=== PATIENT | female | born 1950 | race Caucasian/White ===

== ENCOUNTER 2017-10-04 12:18 | Inpatient (IN) | payer OTHER, BC ==
[~2017-10-04] VITALS: Ht 157.5 cm; Wt 56.2 kg
[2017-10-04] MEDS ORDERED: SODIUM CHLORIDE 0.9% 1000ML 1,000 ML IV STA (12:54)
--- NOTE | 2017-10-04 12:57 | EMERGENCY ROOM VISIT NOTE ---
History Report prepared by Hannah: Leoncio Fraga Under the Supervision of: Dr. Kelton Rios M.D. First contact with patient: 12:26 Chief Complaint: CONFUSION Stated Complaint: CONFUSION,SEIZURE DISORDER Nursing Triage Summary: pt to the ED with c/o since wednesday with epigastric pain to shoulder and was seen at [facility] and told to come here with concerns for gallbladder + nausea History of Present Illness This HPI is limited secondary to the altered mental status of the patient. The patient is a 67 year old female who presents to the Emergency Room for worsening confusion. The patient was not able to provide any pertinent history. The daughter notes that she has been very confused since waking up this morning. The daughter added that she has a history of a seizure disorder and will sometimes be slightly confused secondary to this. However, this is the worst her confusion has ever been. The daughter denies any recent fevers. Source of History: family History Limited By: AMS Position: other (Neuro) Quality: other (Confusion) Timing: worsening Associated Symptoms: No fevers Review of Systems See HPI for pertinent positives & negatives. A total of 10 systems reviewed and were otherwise negative. Past Medical & Surgical Medical Problems: (1) Confusion Hx of Seizure Disorder. Family History Omitted secondary to age. Social History Drug Use: none Housing Status: lives with family Occupation Status: retired Current/Historical Medications Scheduled Aspirin (Aspirin Ec), 81 MG PO DAILY Digoxin (Digitek), 0.5 TAB PO DAILY Diltiazem Hcl Extended Release (Diltiazem Hcl), 300 MG PO DAILY Ferrous Sulfate (Ferrous Sulfate), 325 MG PO BID Furosemide (Lasix), 20 MG PO DAILY Gabapentin (Neurontin), 600 MG PO DAILY Insulin Glargine (Toujeo Solostar), 14 UNITS SC DAILY Lacosamide (Vimpat), 200 MG PO BID Lamotrigine (Lamictal), 100 MG PO QAM Lamotrigine (Lamictal), 200 MG PO QPM Lisinopril (Zestril), 20 MG PO BID Magnesium Oxide (Mag-Ox), 400 MG PO BID Metformin HCl (Metformin HCl ER), 1,000 MG PO BID Simvastatin (Zocor), 40 MG PO DAILY Warfarin Sod (Jantoven), 5 MG PO MWF Warfarin Sod (Jantoven), 10 MG PO 4XWK Allergies Coded Allergies: Latex (Unverified Allergy, Intermediate, HIVES, 10/04/17) Valproic Acid (Unverified Allergy, Intermediate, HIVES, 10/04/17) Physical Exam Vital Signs Date Time Temp Pulse Resp B/P (MAP) Pulse Ox O2 Delivery O2 Flow Rate FiO2 10/04/17 15:21 62 18 154/83 97 Room Air 10/04/17 13:57 70 18 174/79 98 Room Air 74 191/78 84 174/71 10/04/17 13:25 67 10/04/17 13:25 96 Room Air 10/04/17 13:25 96 Room Air 10/04/17 12:23 36.7 92 20 175/98 98 Room Air Physical Exam GENERAL: Patient is a healthy-appearing well-nourished female HEAD: Normocephalic atraumatic EYES: Ocular movements intact pupils equal and react to light OROPHARYNX mucous membranes are moist no exudates present no erythema or edema present NECK: Supple no nuchal rigidity CHEST: Good equal expansion LUNGS: Clear and equal to auscultation CARDIAC: Normal S1 and S2. Mechanical Valve sounds to auscultation. ABDOMEN: Soft nontender no guarding BACK: No CVA tenderness EXTREMITIES: No pain upon palpation normal muscle strength in all groups no clubbing cyanosis or edema NEURO: Patient is following commands and answering questions appropriately. Alert and oriented x3 Cranial Nerves 2-12 grossly intact Medical Decision & Procedures ER Provider Diagnostic Interpretation: Radiology results as stated below per my review and radiologist interpretation: SINGLE VIEW CHEST CLINICAL HISTORY: Change in mental status. FINDINGS: An AP, portable, upright chest radiograph is obtained. No prior studies are available for comparison at the time of dictation. The examination is degraded by portable technique and patient rotation. A 2-lead cardiac AICD is in place and partially obscures the left mid chest. The patient is status post midline sternotomy. The heart is enlarged and there is atherosclerotic calcification of the thoracic aorta. The pulmonary vasculature is noncongested. There is nonspecific interstitial thickening. No airspace consolidation or large pleural effusion is identified. No pneumothorax is seen. The skeletal structures are osteopenic. The bony thorax is grossly intact. IMPRESSION: 1. Cardiomegaly and AICD. There is no radiographic evidence of congestive failure. 2. No focal airspace consolidation or large pleural effusion is identified. Electronically signed by: Azar Uriostegui M.D. 10/04/2017 2:00 PM Dictated Date/Time: 10/04/2017 1:59 PM HEAD WITHOUT CONTRAST (CT) CLINICAL HISTORY: 67 years-old Female presenting with Pt c/o AMS, confusion. TECHNIQUE: Multidetector CT imaging of the head was performed without the use of intravenous contrast. IV contrast: None. A dose lowering technique was used consistent with the principles of ALARA (as low as reasonably achievable). COMPARISON: None. CT DOSE (mGy.cm): The estimated cumulative dose is 1380.10 mGycm. FINDINGS: Wellness Instructor topogram: Unremarkable. Proportional ventricular and sulcal prominence, likely age-related parenchymal volume loss. 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 Focal gliosis and encephalomalacia in the anterior right temporal lobe prior infarct. No mass effect or midline shift. No hemorrhage or acute territorial infarct. No extra-axial fluid collection. Paranasal sinuses and mastoid air cells clear. Calvarium intact. IMPRESSION: 1. 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 No acute intracranial pathology. Electronically signed by: Rakesh Curry M.D. 10/04/2017 1:48 PM Dictated Date/Time: 10/04/2017 1:45 PM Laboratory Results 10/04/17 13:00 Red Blood Count 4.46, Mean Corpuscular Volume 91.7, Mean Corpuscular Hemoglobin 31.8, Mean Corpuscular Hemoglobin Concent 34.7, Mean Platelet Volume 9.8, Neutrophils (%) (Auto) 77.4, Lymphocytes (%) (Auto) 12.8, Monocytes (%) (Auto) 5.7, Eosinophils (%) (Auto) 3.5, Basophils (%) (Auto) 0.3, Neutrophils # (Auto) 7.89, Lymphocytes # (Auto) 1.31, Monocytes # (Auto) 0.58, Eosinophils # (Auto) 0.36, Basophils # (Auto) 0.03 10/04/17 13:00 Test 10/04/17 13:00 10/04/17 13:15 10/04/17 13:50 10/04/17 14:08 White Blood Count 10.20 K/uL (4.8-10.8) Red Blood Count 4.46 M/uL (4.2-5.4) Hemoglobin 14.2 g/dL (12.0-16.0) Hematocrit 40.9 % (37-47) Mean Corpuscular Volume 91.7 fL (80-100) Mean Corpuscular Hemoglobin 31.8 pg (25-34) Mean Corpuscular Hemoglobin Concent 34.7 g/dl (32-36) Platelet Count 230 K/uL (130-400) Mean Platelet Volume 9.8 fL (7.4-10.4) Neutrophils (%) (Auto) 77.4 % Lymphocytes (%) (Auto) 12.8 % Monocytes (%) (Auto) 5.7 % Eosinophils (%) (Auto) 3.5 % Basophils (%) (Auto) 0.3 % Neutrophils # (Auto) 7.89 K/uL (1.4-6.5) Lymphocytes # (Auto) 1.31 K/uL (1.2-3.4) Monocytes # (Auto) 0.58 K/uL (0.11-0.59) Eosinophils # (Auto) 0.36 K/uL (0-0.5) Basophils # (Auto) 0.03 K/uL (0-0.2) RDW Standard Deviation 46.3 fL (36.4-46.3) RDW Coefficient of Variation 13.8 % (11.5-14.5) Immature Granulocyte % (Auto) 0.3 % Immature Granulocyte # (Auto) 0.03 K/uL (0.00-0.02) Prothrombin Time 22.4 SECONDS (9.0-12.0) Prothromb Time International Ratio 2.2 (0.9-1.1) Anion Gap 9.0 mmol/L (3-11) Est Creatinine Clear Calc Drug Dose 33.0 ml/min Estimated GFR () 49.3 Estimated GFR (Non- 42.5 BUN/Creatinine Ratio 22.0 (10-20) Calcium Level 10.9 mg/dl (8.5-10.1) Total Bilirubin 0.3 mg/dl (0.2-1) Direct Bilirubin < 0.1 mg/dl (0-0.2) Aspartate Amino Transf (AST/SGOT) 13 U/L (15-37) Alanine Aminotransferase (ALT/SGPT) 25 U/L (12-78) Alkaline Phosphatase 154 U/L (45-117) Total Creatine Kinase 34 U/L (26-192) Creatine Kinase MB 0.9 ng/ml (0.5-3.6) Creatine Kinase MB Ratio 2.6 (0-3.0) Troponin I < 0.015 ng/ml (0-0.045) Total Protein 7.9 gm/dl (6.4-8.2) Albumin 3.9 gm/dl (3.4-5.0) Thyroid Stimulating Hormone (TSH) 0.974 uIu/ml (0.300-4.500) Digoxin Level 0.8 ng/ml (0.8-2.0) Bedside Glucose 244 mg/dl (70-90) Influenza Type A Antigen Neg for Influ A (NEG) Influenza Type B Antigen Neg for Influ B (NEG) Urine Color YELLOW Urine Appearance CLEAR (CLEAR) Urine pH 5.5 (4.5-7.5) Urine Specific [place] 1.020 (1.000-1.030) Urine Protein 2+ (NEG) Urine Glucose (UA) TRACE (NEG) Urine Ketones NEG (NEG) Urine Occult Blood 1+ (NEG) Urine Nitrite NEG (NEG) Urine Bilirubin NEG (NEG) Urine Urobilinogen NEG (NEG) Urine Leukocyte Esterase NEG (NEG) Urine RBC 0-4 /hpf (0-4) Urine WBC 1-5 /hpf (0-5) Urine Epithelial Cells 0-5 /lpf (0-5) Urine Bacteria NEG (NEG) Urine Hyaline Casts 10-30 /lpf (0-5) Urine Granular Casts 0-3 /lpf (0) Labs reviewed by ED physician. Medications Administered Medications (Trade) Dose Ordered Sig/Kimberlee Route Start Time Stop Time Status Last Admin Dose Admin Sodium Chloride 1,000 ml @ 999 mls/hr Q1H1M STAT IV 10/04/17 12:54 10/04/17 13:54 DC 10/04/17 12:54 999 MLS/HR Insulin Human Regular (novoLIN-R U-100 PER UNIT) 10 units NOW STAT SC 10/04/17 14:21 10/04/17 14:22 DC 10/04/17 14:30 10 UNITS Ceftriaxone Sodium (Rocephin Inj) 1 gm NOW STAT IV 10/04/17 15:25 10/04/17 15:26 DC 10/04/17 15:38 1 GM ECG Per My Interpretation Indication: altered mental status Rate (beats per minute): 70 Findings: PVC, T-wave inversion (Inferior, lateral) ED Course 1247: Past medical records reviewed. The patient was evaluated in room C11. A complete history and physical examination was performed. 1254: Ordered Sodium Chloride 100 mL @ 999 mL/hr IV. 1421: Ordered Regular Human Insulin 10 units SC. 1524: I discussed the case with Dr. Thang MCKEON Hospitalist. He will evaluate the patient for further treatment. 1524: Ordered Rocephin 1 gm IV. Medical Decision Differential diagnosis: Etiologies such as metabolic, infection, hypoglycemia, electrolyte abnormalities , cardiac sources, intracerebral event, toxicologic, neurologic, as well as others were entertained. This is a 67-year-old female who presents emergency department acutely altered. Patient has not been able to answer any questions correctly and per the family this is very much unlike her. Her sugar is also elevated. An IV was established, the patient given normal saline bolus, 10 units of insulin subcutaneous. She does have some blood in her urine and I will prophylactically treat her for urinary tract infection. CAT scan of the head shows old chronic changes and her chest x-ray does not show any evidence of pneumonia. Based on these findings I did discuss the case with the hospitalist service who agreed to admit the patient. Patient family were in agreement with the treatment plan. Medication Reconcilliation Current Medication List: was personally reviewed by me Blood Pressure Screening Patient's blood pressure: Elevated blood pressure Referred to Hospitalist Consults Time Called: 152 Consulting Physician: Dr. Thang MCKEON Hospitalist Returned Call: 152 I discussed the case with Dr. Thang MCKEON Hospitalist. He will evaluate the patient for further treatment. Impression Primary Impression: Altered mental status Scribe Attestation The scribe's documentation has been prepared under my direction and personally reviewed by me in its entirety. I confirm that the note above accurately reflects all work, treatment, procedures, and medical decision making performed by me. Departure Information Dispostion Being Evaluated By Hospitalist Referrals Elver Rolon D.O. (PCP) Patient Instructions My [facility] Problem Qualifiers Primary Impression: Altered mental status Altered mental status type: unspecified Qualified Codes: R41.82 - Altered mental status, unspecified
[2017-10-04] MEDS ORDERED: WARF5TAB7 PO ×2 (13:31)
[2017-10-04] MEDS ORDERED: LACO200T PO (13:31)
[2017-10-04] MEDS ORDERED: LAMO200T PO (13:31)
[2017-10-04] MEDS ORDERED: INSU1.2I SC (13:31)
[2017-10-04] MEDS ORDERED: MAGN400T6 PO (13:31)
[2017-10-04] MEDS ORDERED: DIGO1TAB90 PO (13:31)
[2017-10-04] MEDS ORDERED: SIMV40TA2 PO (13:31)
[2017-10-04] MEDS ORDERED: GABA-113 PO (13:31)
[2017-10-04] MEDS ORDERED: FRRS300 PO (13:31)
[2017-10-04] MEDS ORDERED: LAMO100T16 PO (13:31)
[2017-10-04] MEDS ORDERED: LISI-725 PO (13:31)
[2017-10-04] MEDS ORDERED: FURO-85 PO (13:31)
[2017-10-04] MEDS ORDERED: DILT300C35 PO (13:31)
[2017-10-04] MEDS ORDERED: ASPI81TA28 PO (13:31)
[2017-10-04] MEDS ORDERED: METF-841 PO (13:31)
[2017-10-04 13:35] LABS: BASO % 0.3 %; BASO ABS # 0.03 K/uL (0-0.2); EOS % 3.5 %; EOS ABS # 0.36 K/uL (0-0.5); HEMATOCRIT 40.9 % (37-47); HEMOGLOBIN 14.2 g/dL (12.0-16.0); IG# 0.03 K/uL (0.00-0.02); LYMPH % 12.8 %; LYMPH ABS # 1.31 K/uL (1.2-3.4); MEAN CELL VOLUME 91.7 fL (80-100); MEAN CORPUSCULAR HEMOGLOBIN 31.8 pg (25-34); MEAN CORPUSCULAR HGB CONC 34.7 g/dl (32-36); MEAN PLATELET VOLUME 9.8 fL (7.4-10.4); MONO % 5.7 %; MONO ABS # 0.58 K/uL (0.11-0.59); NEUT % 77.4 %; NEUT ABS # 7.89 K/uL (1.4-6.5); PLATELET COUNT 230 K/uL (130-400); RED CELL DISTRIBUTION WIDTH CV 13.8 % (11.5-14.5); RED CELL DISTRIBUTION WIDTH SD 46.3 fL (36.4-46.3)
[2017-10-04 13:37] LABS: INR 2.2 (0.9-1.1)
--- NOTE | 2017-10-04 13:49 | DIAGNOSTIC IMAGING REPORT ---
HEAD WITHOUT CONTRAST (CT) CLINICAL HISTORY: 67 years-old Female presenting with Pt c/o AMS, confusion. TECHNIQUE: Multidetector CT imaging of the head was performed without the use of intravenous contrast. IV contrast: None. A dose lowering technique was used consistent with the principles of ALARA (as low as reasonably achievable). COMPARISON: None. CT DOSE (mGy.cm): The estimated cumulative dose is 1380.10 mGycm. FINDINGS: Product Promoter Sales Person topogram: Unremarkable. Proportional ventricular and sulcal prominence, likely age-related parenchymal volume loss. 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 Focal gliosis and encephalomalacia in the anterior right temporal lobe prior infarct. No mass effect or midline shift. No hemorrhage or acute territorial infarct. No extra-axial fluid collection. Paranasal sinuses and mastoid air cells clear. Calvarium intact. IMPRESSION: 1. 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 No acute intracranial pathology. Electronically signed by: Rakesh Curry M.D. 10/04/2017 1:48 PM Dictated Date/Time: 10/04/2017 1:45 PM
[2017-10-04 14:02] LABS: ALBUMIN 3.9 gm/dl (3.4-5.0); ALKALINE PHOSPHATASE 154 U/L (45-117); ALT/SGPT 25 U/L (12-78); AST/SGOT 13 U/L (15-37); BLOOD UREA NITROGEN 28 mg/dl (7-18); CALCIUM 10.9 mg/dl (8.5-10.1); CARBON DIOXIDE 26 mmol/L (21-32); CKMB 0.9 ng/ml (0.5-3.6); CREATININE 1.29 mg/dl (0.60-1.20); GLUCOSE 253 mg/dl (70-99); POTASSIUM 4.2 mmol/L (3.5-5.1); SODIUM 136 mmol/L (136-145); TOTAL PROTEIN 7.9 gm/dl (6.4-8.2)
--- NOTE | 2017-10-04 14:02 | DIAGNOSTIC IMAGING REPORT ---
SINGLE VIEW CHEST CLINICAL HISTORY: Change in mental status. FINDINGS: An AP, portable, upright chest radiograph is obtained. No prior studies are available for comparison at the time of dictation. The examination is degraded by portable technique and patient rotation. A 2-lead cardiac AICD is in place and partially obscures the left mid chest. The patient is status post midline sternotomy. The heart is enlarged and there is atherosclerotic calcification of the thoracic aorta. The pulmonary vasculature is noncongested. There is nonspecific interstitial thickening. No airspace consolidation or large pleural effusion is identified. No pneumothorax is seen. The skeletal structures are osteopenic. The bony thorax is grossly intact. IMPRESSION: 1. Cardiomegaly and AICD. There is no radiographic evidence of congestive failure. 2. No focal airspace consolidation or large pleural effusion is identified. Electronically signed by: Azar Uriostegui M.D. 10/04/2017 2:00 PM Dictated Date/Time: 10/04/2017 1:59 PM
[2017-10-04] MEDS ORDERED: NovoLIN-R INSULIN PER UNIT CHARGE SC STA (14:21)
[2017-10-04 14:46] LABS: INFLUENZA B ANTIGEN Neg for Influ B (NEG)
[2017-10-04] MEDS ORDERED: CEFTRIAXONE SOD INJ 1 GM ADDVIAL IV STA (15:25)
[2017-10-04] MEDS ORDERED: MoRPHine SULFATE 2 MG/ML CARP IV PRN (16:00)
[2017-10-04] MEDS ORDERED: ZOLPIDEM TARTRATE 5 MG TAB PO PRN (16:00)
[2017-10-04] MEDS ORDERED: ACETAMINOPHEN 325 MG TAB PO PRN (16:00)
[2017-10-04] MEDS ORDERED: MAGNESIUM HYDROXIDE SUSP 30 ML UDC PO PRN (16:00)
[2017-10-04] MEDS ORDERED: NITROGLYCERIN 0.4 MG SL PER TAB CHARGE SL PRN (16:00)
[2017-10-04] MEDS ORDERED: POLYETHYLENE (MIRALAX) 17 GM PACK PO PRN (16:00)
[2017-10-04] MEDS ORDERED: ALUMINUM/MAGNESIUM/SIMETH (MAALOX MAX) 30 ML UDC PO PRN (16:00)
[2017-10-04] MEDS ORDERED: ONDANSETRON INJ 2 MG/ML 2 ML VIAL IV PRN (16:00)
--- NOTE | 2017-10-04 16:27 | History and Physical ---
History & Physical Date & Time of Service: Oct 04, 2017 at 16:09 Chief Complaint: Confusion,Seizure Disorder Primary Care Physician: Elver Rolon D.O. History of Present Illness Source: patient, family, clinic records, hospital records Patient is a pleasant 67 y/o female, with PMHx of CVA, seizure disorder, a.fib, HTN, T2DM, CKD stage III, and HLD who presented to the ED because of confusion x1 day. History came largely from daughter as patient is oriented x0. According to the daughter, last evening the patient went to take her medications but began crying because she didn't know what to do with them. This AM they called their PCP and neurologist. Neurologist dismissed patient from their practice today because they want patient to have a procedure but patient does not want to do so and neurology has "nothing else to offer." PCP recommended patient come to ED. Normally, patient is alert/oriented x3. She lives alone. Patient denies any fever, chills, sweats, lightheadedness, dizziness, vision changes, CP , palpitations, edema, SOB, wheezing, cough, abdominal pain, nausea, vomiting, diarrhea, urinary symptoms, melena, numbness/tingling, weakness, muscle/joint pain, anxiety/depression, active bleeding, or new skin discoloration/changes- unsure of ROS reliability due to confusion. Past Medical/Surgical History CVA seizure disorder a.fib HTN T2DM HLD CKD stage III mitral valve repair s/p defibrillator/pacemaker placed in 2011- battery replaced in 2016 Family History denied any significant family history Social History Smoking Status: Never Smoker Alcohol Use: none Drug Use: none Marital Status: Housing status: lives alone Occupational Status: retired Allergies Coded Allergies: Latex (Unverified Allergy, Intermediate, HIVES, 10/04/17) Valproic Acid (Unverified Allergy, Intermediate, HIVES, 10/04/17) Home Medications Scheduled Aspirin (Aspirin Ec), 81 MG PO DAILY Digoxin (Digitek), 0.5 TAB PO DAILY Diltiazem Hcl Extended Release (Diltiazem Hcl), 300 MG PO DAILY Ferrous Sulfate (Ferrous Sulfate), 325 MG PO BID Furosemide (Lasix), 20 MG PO DAILY Gabapentin (Neurontin), 600 MG PO DAILY Insulin Glargine (Toujeo Solostar), 14 UNITS SC DAILY Lacosamide (Vimpat), 200 MG PO BID Lamotrigine (Lamictal), 100 MG PO QAM Lamotrigine (Lamictal), 200 MG PO QPM Lisinopril (Zestril), 20 MG PO BID Magnesium Oxide (Mag-Ox), 400 MG PO BID Metformin HCl (Metformin HCl ER), 1,000 MG PO BID Simvastatin (Zocor), 40 MG PO DAILY Warfarin Sod (Jantoven), 5 MG PO MWF Warfarin Sod (Jantoven), 10 MG PO [id number] Physical Exam Vital Signs Date Time Temp Pulse Resp B/P (MAP) Pulse Ox O2 Delivery O2 Flow Rate FiO2 10/04/17 15:21 62 18 154/83 97 Room Air 10/04/17 13:57 70 18 174/79 98 Room Air 74 191/78 84 174/71 10/04/17 13:25 67 10/04/17 13:25 96 Room Air 10/04/17 13:25 96 Room Air 10/04/17 12:23 36.7 92 20 175/98 98 Room Air General Appearance: no apparent distress Head: normocephalic, atraumatic Eyes: normal inspection, PERRL ENT: hearing grossly normal Neck: supple Respiratory/Chest: lungs clear, normal breath sounds, no respiratory distress, no accessory muscle use Cardiovascular: regular rate, rhythm Abdomen/GI: normal bowel sounds, non tender, soft Back: normal inspection Extremities/Musculoskelatal: no calf tenderness, no pedal edema Neurologic/Psych: no motor/sensory deficits, alert, normal mood/affect, oriented x 3 Skin: normal color, warm/dry, no rash Diagnostics Laboratory Results Results Past 24 Hours Test 10/04/17 13:00 10/04/17 13:15 10/04/17 13:50 10/04/17 14:08 Range/Units White Blood Count 10.20 4.8-10.8 K/uL Red Blood Count 4.46 4.2-5.4 M/uL Hemoglobin 14.2 12.0-16.0 g/dL Hematocrit 40.9 37-47 % Mean Corpuscular Volume 91.7 80-100 fL Mean Corpuscular Hemoglobin 31.8 25-34 pg Mean Corpuscular Hemoglobin Concent 34.7 32-36 g/dl Platelet Count 230 130-400 K/uL Mean Platelet Volume 9.8 7.4-10.4 fL Neutrophils (%) (Auto) 77.4 % Lymphocytes (%) (Auto) 12.8 % Monocytes (%) (Auto) 5.7 % Eosinophils (%) (Auto) 3.5 % Basophils (%) (Auto) 0.3 % Neutrophils # (Auto) 7.89 1.4-6.5 K/uL Lymphocytes # (Auto) 1.31 1.2-3.4 K/uL Monocytes # (Auto) 0.58 0.11-0.59 K/uL Eosinophils # (Auto) 0.36 0-0.5 K/uL Basophils # (Auto) 0.03 0-0.2 K/uL RDW Standard Deviation 46.3 36.4-46.3 fL RDW Coefficient of Variation 13.8 11.5-14.5 % Immature Granulocyte % (Auto) 0.3 % Immature Granulocyte # (Auto) 0.03 0.00-0.02 K/uL Prothrombin Time 22.4 9.0-12.0 SECONDS Prothromb Time International Ratio 2.2 0.9-1.1 Sodium Level 136 136-145 mmol/L Potassium Level 4.2 3.5-5.1 mmol/L Chloride Level 101 98-107 mmol/L Carbon Dioxide Level 26 21-32 mmol/L Anion Gap 9.0 3-11 mmol/L Blood Urea Nitrogen 28 7-18 mg/dl Creatinine 1.29 0.60-1.20 mg/dl Est Creatinine Clear Calc Drug Dose 33.0 ml/min Estimated GFR () 49.3 Estimated GFR (Non- 42.5 BUN/Creatinine Ratio 22.0 10-20 Random Glucose 253 70-99 mg/dl Calcium Level 10.9 8.5-10.1 mg/dl Total Bilirubin 0.3 0.2-1 mg/dl Direct Bilirubin < 0.1 0-0.2 mg/dl Aspartate Amino Transf (AST/SGOT) 13 15-37 U/L Alanine Aminotransferase (ALT/SGPT) 25 12-78 U/L Alkaline Phosphatase 154 45-117 U/L Total Creatine Kinase 34 26-192 U/L Creatine Kinase MB 0.9 0.5-3.6 ng/ml Creatine Kinase MB Ratio 2.6 0-3.0 Troponin I < 0.015 0-0.045 ng/ml Total Protein 7.9 6.4-8.2 gm/dl Albumin 3.9 3.4-5.0 gm/dl Thyroid Stimulating Hormone (TSH) 0.974 0.300-4.500 uIu/ml Digoxin Level 0.8 0.8-2.0 ng/ml Bedside Glucose 244 70-90 mg/dl Influenza Type A Antigen Neg for Influ A NEG Influenza Type B Antigen Neg for Influ B NEG Urine Color YELLOW Urine Appearance CLEAR CLEAR Urine pH 5.5 4.5-7.5 Urine Specific [place] 1.020 1.000-1.030 Urine Protein 2+ NEG Urine Glucose (UA) TRACE NEG Urine Ketones NEG NEG Urine Occult Blood 1+ NEG Urine Nitrite NEG NEG Urine Bilirubin NEG NEG Urine Urobilinogen NEG NEG Urine Leukocyte Esterase NEG NEG Urine RBC 0-4 0-4 /hpf Urine WBC 1-5 0-5 /hpf Urine Epithelial Cells 0-5 0-5 /lpf Urine Bacteria NEG NEG Urine Hyaline Casts 10-30 0-5 /lpf Urine Granular Casts 0-3 0 /lpf Diagnostic Radiology HEAD WITHOUT CONTRAST (CT) CLINICAL HISTORY: 67 years-old Female presenting with Pt c/o AMS, confusion. TECHNIQUE: Multidetector CT imaging of the head was performed without the use of intravenous contrast. IV contrast: None. A dose lowering technique was used consistent with the principles of ALARA (as low as reasonably achievable). COMPARISON: None. CT DOSE (mGy.cm): The estimated cumulative dose is 1380.10 mGycm. FINDINGS: Golf Technician topogram: Unremarkable. Proportional ventricular and sulcal prominence, likely age-related parenchymal volume loss. 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 Focal gliosis and encephalomalacia in the anterior right temporal lobe prior infarct. No mass effect or midline shift. No hemorrhage or acute territorial infarct. No extra-axial fluid collection. Paranasal sinuses and mastoid air cells clear. Calvarium intact. IMPRESSION: 1. 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 No acute intracranial pathology. Electronically signed by: Rakesh Curry M.D. 10/04/2017 1:48 PM Dictated Date/Time: 10/04/2017 1:45 PM The status of this report is Signed. Draft = Not yet reviewed or approved by Radiologist. Signed = Reviewed and approved by Radiologist. SINGLE VIEW CHEST CLINICAL HISTORY: Change in mental status. FINDINGS: An AP, portable, upright chest radiograph is obtained. No prior studies are available for comparison at the time of dictation. The examination is degraded by portable technique and patient rotation. A 2-lead cardiac AICD is in place and partially obscures the left mid chest. The patient is status post midline sternotomy. The heart is enlarged and there is atherosclerotic calcification of the thoracic aorta. The pulmonary vasculature is noncongested. There is nonspecific interstitial thickening. No airspace consolidation or large pleural effusion is identified. No pneumothorax is seen. The skeletal structures are osteopenic. The bony thorax is grossly intact. IMPRESSION: 1. Cardiomegaly and AICD. There is no radiographic evidence of congestive failure. 2. No focal airspace consolidation or large pleural effusion is identified. Electronically signed by: Azar Uriostegui M.D. 10/04/2017 2:00 PM Dictated Date/Time: 10/04/2017 1:59 PM The status of this report is Signed. Draft = Not yet reviewed or approved by Radiologist. Signed = Reviewed and approved by Radiologist. EKG IVETTE BUITRAGO ID:[id number] 04-OCT-2017 13:20:09 [facility] Atrial fibrillation with frequent ventricular-paced complexes Rightward axis ST & T wave abnormality, consider inferior ischemia ST & T wave abnormality, consider anterolateral ischemia Abnormal ECG No previous ECGs available Confirmed by AMISH AMOS ([id number]) on 10/04/2017 4:18:04 PM 25mm/s 10mm/mV 150Hz 8.0 SP2 12SL 241 THEO: 0 Referred by: ED Confirmed By: AMISH Clark. rate 70 BPM TX interval * ms QRS duration 102 ms QT/QTc 372/401 ms P-R-T axes * 97 265 1950 (67 yr) Female [facility] Loc:15 Fitting Room Associate:Geovanny Hidalgo ind: Impression Assessment and Plan Patient is a pleasant 67 y/o female, with PMHx of CVA, seizure disorder, a.fib, HTN, T2DM, CKD stage III, and HLD who presented to the ED because of confusion x1 day. Encephalopathy: - Admit to tele - Trend cardiac enzymes - EKG QAM and PRN for chest pain - O2 protocol - CXR and CT unremarkable - UA relatively unremarkable- IV Rocephin x1 in ED, will hold on further treatment pending UCx - TSH WNL, Digoxin level WNL; Lamictal pending; check b12 level - Influenza negative - Consult neurology, appreciate recommendations- will hold on further imaging pending neurology consultation due to no focal deficits Seizure disorder: Continue Lamictal, Vimpat, Gabapentin T2DM w/ hyperglycemia: - Check hgbA1c - Hold Metformin while inpatient - Continue Toujeo 14 u daily - BSG ACHS and ISS CKD stage III- follows w/ Dr. Dalton: - Bump in flight service agent to 1.20 today from 1.0 in 06/2017 - IVF @ 100 ml/hr - Hold nephrotoxic agents and renally dose medications as appropriate HTN: - Hold Lisinopril and Lasix due to bump in flight service agent - IV Hydralazine PRN HLD: Continue Zocor A.fib- rate controlled: - Continue ASA 81 mg daily, Digoxin, Diltazem, Mag supplement - Continue Warfarin- follow PT/INR and adjust PRN DVT prophylaxis: Warfarin Code status: LEVEL I, FULL Dispo: From home- PT/OT and CM consulted Supervising Note Dr. Desir I performed a history and physical examination on the patient. I reviewed above note and agree with it. I discussed plan with APC and patient. During my face to face encounter with the patient, I answered all of the patient's questions. No focal deficits. Will await neurology input and continue to monitor clinically Resuscitation Status VTE Prophylaxis Will order VTE Prophylaxis: Yes
[2017-10-04] MEDS: SODIUM CHLORIDE 0.9% 1000ML 1,000 ML IV SCH (17:40)
[2017-10-04] MEDS: WARFARIN SOD 5 MG TAB PO SCH (18:16)
[2017-10-04] MEDS: INSULIN ASPART 100 UNITS/ML 3 ML PEN SC SCH ×2 (18:18→20:47)
[2017-10-04 19:48] VITALS: BP 174/84; PULSE 68; TEMP 36.7; O2SAT 93
[2017-10-04 20:00] VITALS: BP_SYST 180; BP_SYST 201; BP_DIAS 89; BP_DIAS 96; PULSE 78; TEMP 36.6; O2SAT 98; Ht 157.5 cm; Wt 56.2 kg
[2017-10-04] MEDS: FERROUS SULFATE 325 MG TAB PO SCH (20:48)
[2017-10-04] MEDS: MAGNESIUM OXIDE 400 MG TAB PO SCH (20:48)
[2017-10-04] MEDS: LACOSAMIDE 50 MG TAB PO SCH (20:49)
[2017-10-04] MEDS ORDERED: PNEUMOCOCCAL POLYSACCHARIDES 25 MCG/0.5 ML VIAL/SYR IM. ONE (21:15)
[2017-10-04] MEDS ORDERED: PNEUMOCOCCAL ADMINISTRATION CHARGE ONE (21:15)
[2017-10-04 21:36] LABS: CKMB 0.7 ng/ml (0.5-3.6)
[2017-10-04 23:46] VITALS: BP 144/60; PULSE 80; TEMP 37.5; O2SAT 91
[2017-10-05] VITALS (10 sets, daily range): BP systolic 111–182; BP diastolic 73–96; PULSE 64–90; TEMP 36.6–37.1; O2SAT 93–97
[2017-10-05] MEDS: HydrALAZINE HCL 20 MG/ML VIAL IV. PRN ×2 (01:35→23:25)
[2017-10-05] MEDS: SODIUM CHLORIDE 0.9% 1000ML 1,000 ML IV SCH (03:32)
[2017-10-05] MEDS ORDERED: METOPROLOL TARTRATE 1 MG/ML VIAL IV STA (05:52)
[2017-10-05 06:13] LABS: HEMATOCRIT 37.2 % (37-47); HEMOGLOBIN 12.9 g/dL (12.0-16.0); MEAN CORPUSCULAR HEMOGLOBIN 31.5 pg (25-34); MEAN CORPUSCULAR HGB CONC 34.7 g/dl (32-36); MEAN PLATELET VOLUME 9.1 fL (7.4-10.4); PLATELET COUNT 174 K/uL (130-400); RED CELL DISTRIBUTION WIDTH CV 13.5 % (11.5-14.5); RED CELL DISTRIBUTION WIDTH SD 44.9 fL (36.4-46.3); WHITE BLOOD COUNT 8.25 K/uL (4.8-10.8)
[2017-10-05 06:20] LABS: INR 2.2 (0.9-1.1)
[2017-10-05 06:33] LABS: HEMOGLOBIN A1C 7.4 % (4.5-5.6)
--- NOTE | 2017-10-05 06:38 | Clinical Documentation Query ---
CLINICAL DOCUMENTATION QUERY 67 yo female admitted for confusion x 1 day. She continues to have altered mental status. In your clinical opinion is this patient being managed for: ( x ) Encephalopathy ( ) Not Agree ( ) Other explanation of clinical findings (Please Explain) ( ) Unable to determine (Please Define) ( ) Need to Discuss The medical record reflects the following clinical findings, treatment, and risk factors. Clinical Indicators: As above Treatment: Neurology consult, CT head Risk Factors: Seizure d/o, hx of CVA Please clarify and document your clinical opinion in the progress notes and discharge summary. Terms such as "probable", "suspected", "likely", "questionable", "possible", or "still to be ruled out" are acceptable. IF IN AGREEMENT, YOU MUST DOCUMENT ABOVE DIAGNOSTIC STATEMENT IN DAILY PROGRESS NOTES AND DISCHARGE SUMMARY. This document is not part of the patient's record. Thank You, Leonela Bronson RN [phone]
[2017-10-05 06:46] LABS: BLOOD UREA NITROGEN 26 mg/dl (7-18); CALCIUM 9.7 mg/dl (8.5-10.1); CARBON DIOXIDE 25 mmol/L (21-32); CREATININE 0.99 mg/dl (0.60-1.20); GLUCOSE 179 mg/dl (70-99); POTASSIUM 3.8 mmol/L (3.5-5.1); SODIUM 137 mmol/L (136-145)
[2017-10-05 06:51] LABS: CKMB 0.7 ng/ml (0.5-3.6)
[2017-10-05] MEDS: LACOSAMIDE 50 MG TAB PO SCH ×2 (08:33→20:59)
[2017-10-05] MEDS: GABAPENTIN 600 MG TAB PO SCH (08:34)
[2017-10-05] MEDS: SIMVASTATIN 40 MG TAB PO SCH (08:34)
[2017-10-05] MEDS: FERROUS SULFATE 325 MG TAB PO SCH ×2 (08:34→20:58)
[2017-10-05] MEDS: DILTIAZEM HCL 300 MG CAPCR PO SCH (08:34)
[2017-10-05] MEDS: MAGNESIUM OXIDE 400 MG TAB PO SCH ×2 (08:34→20:58)
[2017-10-05] MEDS: ASPIRIN 81 MG ECTAB PO SCH (08:34)
[2017-10-05] MEDS: INSULIN ASPART 100 UNITS/ML 3 ML PEN SC SCH ×4 (08:41→20:59)
[2017-10-05] MEDS: INSULIN GLARGINE SOLOSTAR 100 UNITS/ML 3 ML PEN SC SCH (08:41)
--- NOTE | 2017-10-05 09:39 | Neurology Consultation ---
Neurology Consultation Date of Consultation: Oct 05, 2017. Attending Physician: Willard Desir M.D. Primary Care Physician: Elver Rolon D.O. Reason for Consultation: Consult for altered mental status and history of seizures History of Present Illness Source: patient, clinic records, hospital records This is a 67-year-old right-handed female who presents for the above evaluation. Apparently family brought her to the emergency room for acute confusion 1 day. Patient does not remember feeling confused. She reports feeling hot yesterday and then could not remember what happened afterwards. She reports this is happened several times but cannot be specific. She reports that she follows with outside neurologist (Dr Gamez?). Reports that she started to have seizures couple years ago. Describes them as staring but she is aware of what is going on around her. She reports that she can speak during the events. She reports that they last less than 5 minutes. Reports that her last event was around August or September. Denies any side effects to Lamictal or Vimpat. Does not know the reaction that she had to Depakote in the past. She denies any other antiepileptic medication trials. She reports gabapentin is for left leg symptoms. Hospital discharge summary from July along with an EEG report were reviewed from the patient's outpatient chart. EEG in July noted sharp waves in the right frontotemporal lobe. Per neurology notes patient has staring spells and sometimes left [place] paralysis. During her hospital admission July they also did ultrasound of the carotids which were reported as unremarkable. During this hospitalization the patient did have a CT of her head. Report and images reviewed by myself and notes and old right temporal lobe ischemic stroke. She reports that this occurred in 1992 with symptoms of left leg weakness and aphasia Digoxin level was within normal limits. Lamictal level is pending. Other labs so far have been unremarkable including TSH, B12 level of 376, and hemoglobin A1c mildly elevated at 7.4. Patient feels that she is back to her normal baseline this morning although is somewhat confused and history is somewhat limited due to mental status. Uncertain what her baseline is. Past Medical/Surgical History Medical Problems: (1) Altered mental status Status: Acute Right temporal lobe ischemic stroke Recurrent seizures A. fib Valve replacement Hypertension Diabetes type 2 CKD type III Ischemic cardiomyopathy status post pacer Depression/anxiety Family History Patient reports family history of a mother with an enlarged heart and father with some sort of heart problem. Denies any strokes or heart attacks at a young age. Denies any family history of seizures Social History lives with daughter. rare tobacco use. no alcohol or drug use. Alcohol Use: none Drug Use: none Marital Status: Housing Status: lives with family Occupation Status: retired Allergies Coded Allergies: Latex (Unverified Allergy, Intermediate, HIVES, 10/04/17) Valproic Acid (Unverified Allergy, Intermediate, HIVES, 10/04/17) Current Inpatient Medications Current Inpatient Medications Medications (Trade) Dose Ordered Sig/Kimberlee Route Start Time Stop Time Status Last Admin Dose Admin Acetaminophen (Tylenol Tab) 650 mg Q4H PRN PO 10/04/17 16:00 11/03/17 15:59 Al Hydrox/Mg Hydrox/Simethicone (Maalox Max Susp) 15 ml Q4H PRN PO 10/04/17 16:00 11/03/17 15:59 Magnesium Hydroxide (Milk Of Magnesia Susp) 30 ml Q12H PRN PO 10/04/17 16:00 11/03/17 15:59 Zolpidem Tartrate (Ambien Tab) 5 mg HSZ PRN PO 10/04/17 16:00 11/03/17 15:59 Ondansetron HCl (Zofran Inj) 4 mg Q6H PRN IV 10/04/17 16:00 11/03/17 15:59 Nitroglycerin (Nitrostat Tab) 0.4 mg UD PRN SL 10/04/17 16:00 11/03/17 15:59 Morphine Sulfate (MoRPHine SULFATE INJ) 2 mg Q30M PRN IV 10/04/17 16:00 10/18/17 15:59 Polyethylene (Miralax Powder Packet) 17 gm DAILY PRN PO 10/04/17 16:00 11/03/17 15:59 Aspirin (Ecotrin Tab) 81 mg DAILY PO 10/05/17 09:00 11/04/17 08:59 10/05/17 08:34 81 MG Digoxin (Lanoxin Tab) 0.125 mg DAILY@16 PO 10/05/17 16:00 11/04/17 15:59 Ferrous Sulfate (Feosol Tab) 325 mg BID PO 10/04/17 21:00 11/03/17 20:59 10/05/17 08:34 325 MG Gabapentin (Neurontin Tab) 600 mg DAILY PO 10/05/17 09:00 11/04/17 08:59 10/05/17 08:34 600 MG Lamotrigine (Lamictal Tab) 100 mg QAM PO 10/05/17 09:00 11/04/17 08:59 10/05/17 08:34 100 MG Magnesium Oxide (Mag-Ox Tab) 400 mg BID PO 10/04/17 21:00 11/03/17 20:59 10/05/17 08:34 400 MG Simvastatin (Zocor Tab) 40 mg DAILY PO 10/05/17 09:00 11/04/17 08:59 10/05/17 08:34 40 MG Warfarin Sodium (Coumadin Tab) 5 mg MoWeFr@1600 PO 10/04/17 16:00 11/03/17 15:59 10/04/17 18:16 5 MG Warfarin Sodium (Coumadin Tab) 10 mg SuTuThSa@1600 PO 10/05/17 16:00 11/04/17 15:59 Diltiazem HCl (Cardizem Cd Cap) 300 mg DAILY PO 10/05/17 09:00 11/04/17 08:59 10/05/17 08:34 300 MG Insulin Glargine (Lantus Solostar Pen) 14 units DAILY SC 10/05/17 09:00 11/04/17 08:59 10/05/17 08:41 14 UNITS Lacosamide (Vimpat Tab) 200 mg BID PO 10/04/17 21:00 11/03/17 20:59 10/05/17 08:33 200 MG Lamotrigine (Lamictal Tab) 200 mg QPM PO 10/04/17 21:00 11/03/17 20:59 10/04/17 20:49 200 MG Insulin Aspart (novoLOG ASPART) SLIDING SCALE G... ACHS SC 10/04/17 16:00 11/03/17 15:59 10/05/17 08:41 5 UNITS Hydralazine HCl (HydrALAZINE INJ) 10 mg Q6H PRN IV. 10/04/17 16:00 11/03/17 15:59 10/05/17 01:35 10 MG Review of Systems complete ROS otherwise negative except for the above noted in HPI Physical Exam Vital Signs (Past 24 Hrs): Date Time Temp Pulse Resp B/P (MAP) Pulse Ox O2 Delivery O2 Flow Rate FiO2 10/05/17 07:43 36.6 67 18 177/96 (123) 93 Room Air 10/05/17 06:05 85 182/73 10/05/17 04:31 36.8 90 16 182/73 (109) 96 Room Air 10/05/17 04:00 Room Air 10/05/17 03:45 36.8 80 20 175/84 (114) 96 Room Air 10/05/17 02:30 73 181/80 (113) 10/05/17 00:00 36.7 74 18 173/95 (121) 93 Room Air 10/05/17 00:00 Room Air 10/04/17 23:46 37.5 80 20 144/60 (88) 91 Room Air 10/04/17 20:00 36.6 78 18 201/89 98 Room Air 180/96 10/04/17 19:48 36.7 68 18 174/84 (114) 93 Room Air 10/04/17 15:21 62 18 154/83 97 Room Air 10/04/17 13:57 70 18 174/79 98 Room Air 74 191/78 84 174/71 10/04/17 13:25 67 10/04/17 13:25 96 Room Air 10/04/17 13:25 96 Room Air 10/04/17 12:23 36.7 92 20 175/98 98 Room Air Gen.: Patient is alert and in no acute distress lying in bed Heart: Regular rate and rhythm Extremities: No gross deformities or rashes noted Neurological examination: Mental status: Patient is alert and oriented to person and place only. Able to give some of her own history but not certain how accurate all of her history is. Attention concentration normal for the situation. Remote and recent memory seem impaired. Speech is fluent without any dysarthria. May have some mild expressive aphasia at times Cranial nerves: Funduscopic examination was difficult to visualize. Pupils equally round and reactive to light. Extraocular muscles intact without nystagmus. No facial asymmetry noted. Facial sensation intact. Tongue midline. Good palatal elevation. Good shoulder shrug bilaterally. Hearing grossly intact voice. Strength: 5/5 both proximal and distal in all extremities. No arm drift.Tone is normal. Sensation: Grossly intact to light touch in all extremities Deep tendon reflexes: +1 in bilateral biceps and patellar. Toes are downgoing to plantar stimulation bilaterally Coordination: Patient has good finger to nose without dysmetria. Station within the bed is normal. Laboratory Results Past 24 Hours: 10/05/17 05:59 10/05/17 05:59 Test 10/04/17 13:00 10/04/17 13:50 10/04/17 14:08 10/04/17 16:31 Immature Granulocyte % (Auto) 0.3 % White Blood Count 10.20 K/uL (4.8-10.8) Red Blood Count 4.46 M/uL (4.2-5.4) Hemoglobin 14.2 g/dL (12.0-16.0) Hematocrit 40.9 % (37-47) Mean Corpuscular Volume 91.7 fL (80-100) Mean Corpuscular Hemoglobin 31.8 pg (25-34) Mean Corpuscular Hemoglobin Concent 34.7 g/dl (32-36) Platelet Count 230 K/uL (130-400) Mean Platelet Volume 9.8 fL (7.4-10.4) Neutrophils (%) (Auto) 77.4 % Lymphocytes (%) (Auto) 12.8 % Monocytes (%) (Auto) 5.7 % Eosinophils (%) (Auto) 3.5 % Basophils (%) (Auto) 0.3 % Neutrophils # (Auto) 7.89 K/uL (1.4-6.5) Lymphocytes # (Auto) 1.31 K/uL (1.2-3.4) Monocytes # (Auto) 0.58 K/uL (0.11-0.59) Eosinophils # (Auto) 0.36 K/uL (0-0.5) Basophils # (Auto) 0.03 K/uL (0-0.2) Immature Granulocyte # (Auto) 0.03 K/uL (0.00-0.02) Magnesium Level 1.9 mg/dl (1.8-2.4) Total Bilirubin 0.3 mg/dl (0.2-1) Direct Bilirubin < 0.1 mg/dl (0-0.2) Aspartate Amino Transf (AST/SGOT) 13 U/L (15-37) Alanine Aminotransferase (ALT/SGPT) 25 U/L (12-78) Alkaline Phosphatase 154 U/L (45-117) Total Creatine Kinase 34 U/L (26-192) Total Protein 7.9 gm/dl (6.4-8.2) Albumin 3.9 gm/dl (3.4-5.0) Thyroid Stimulating Hormone (TSH) 0.974 uIu/ml (0.300-4.500) Digoxin Level 0.8 ng/ml (0.8-2.0) Influenza Type A Antigen Neg for Influ A (NEG) Influenza Type B Antigen Neg for Influ B (NEG) Urine Color YELLOW Urine Appearance CLEAR (CLEAR) Urine pH 5.5 (4.5-7.5) Urine Specific [place] 1.020 (1.000-1.030) Urine Protein 2+ (NEG) Urine Glucose (UA) TRACE (NEG) Urine Ketones NEG (NEG) Urine Occult Blood 1+ (NEG) Urine Nitrite NEG (NEG) Urine Bilirubin NEG (NEG) Urine Urobilinogen NEG (NEG) Urine Leukocyte Esterase NEG (NEG) Urine RBC 0-4 /hpf (0-4) Urine WBC 1-5 /hpf (0-5) Urine Epithelial Cells 0-5 /lpf (0-5) Urine Bacteria NEG (NEG) Urine Hyaline Casts 10-30 /lpf (0-5) Urine Granular Casts 0-3 /lpf (0) Vitamin B12 Level 376 pg/mL (211-911) Test 10/04/17 21:03 10/05/17 05:00 10/05/17 05:59 10/05/17 07:24 Hepatitis C Antibody Screen NEG (NEG) Creatine Kinase MB Ratio (0-3.0) Red Blood Count 4.09 M/uL (4.2-5.4) Mean Corpuscular Volume 91.0 fL (80-100) Mean Corpuscular Hemoglobin 31.5 pg (25-34) Mean Corpuscular Hemoglobin Concent 34.7 g/dl (32-36) RDW Standard Deviation 44.9 fL (36.4-46.3) RDW Coefficient of Variation 13.5 % (11.5-14.5) Mean Platelet Volume 9.1 fL (7.4-10.4) Prothrombin Time 23.1 SECONDS (9.0-12.0) Prothromb Time International Ratio 2.2 (0.9-1.1) Anion Gap 6.0 mmol/L (3-11) Est Creatinine Clear Calc Drug Dose 43.0 ml/min Estimated GFR () 67.9 Estimated GFR (Non- 58.6 BUN/Creatinine Ratio 26.3 (10-20) Estimated Average Glucose 166 mg/dl Hemoglobin A1c 7.4 % (4.5-5.6) Calcium Level 9.7 mg/dl (8.5-10.1) Creatine Kinase MB 0.7 ng/ml (0.5-3.6) Troponin I 0.018 ng/ml (0-0.045) Bedside Glucose 200 mg/dl (70-90) Imaging As noted above in HPI Impression This is a 67-year-old female who presents with acute encephalopathy of unknown etiology. At this time there does not appear to be anything specific in her history or workup suggestive of TIA, stroke, or seizure. Certainly she is at high risk for focal seizures with a right temporal lobe ischemic stroke in the past. Cannot rule out that she had an unwitnessed seizure causing confusion. Currently the patient reports that she is back at her baseline but uncertain what her normal cognitive baseline is. The patient does appear to have some cognitive deficits on examination. Plan At this time I do not recommend any changes to the patient's medications. Can follow-up with her outpatient neurologist for medication management. Lamictal level is pending but could take several days to come back. Follow-up with daughter to see if the patient is back to her normal baseline. If she is at her normal baseline, I do not have any reason to keep the patient in the hospital further. If family reports the patient is not at her baseline, could consider additional workup including EEG and ammonia level. Thank you for allowing me to participate in this patient's care. If there is any questions or concerns, feel free to call/page me.
[2017-10-05] MEDS: WARFARIN SOD 10 MG TAB PO SCH (15:37)
[2017-10-05] MEDS: DIGOXIN 0.125 MG TAB PO SCH (15:37)
--- NOTE | 2017-10-05 16:09 | Progress Note ---
Subjective Date of Service: Oct 05, 2017. Subjective Pt evaluation today including: conversation w/ patient, physical exam, lab review, review of studies, conversation w/ it web development consultant, review of inpatient medication list Pain: no pain PO Intake: adequate Voiding: no voiding problems patient pleasant, sitting in chair, still confused does not know year or month, thinks she ate lunch at a [employer] luncheon and believes her daughter is having surgery says that she had a seizure yesterday, caused her confusion reviewed labs and imaging discussed the case with Dr. Hall attempted to contact daughter twice via phone, no response Problem List Medical Problems: (1) Altered mental status Status: Acute Review of Systems Neurologic: + memory loss All Other Systems: Reviewed and Negative Medications Current Inpatient Medications Medications (Trade) Dose Ordered Sig/Kimberlee Route Start Time Stop Time Status Last Admin Dose Admin Acetaminophen (Tylenol Tab) 650 mg Q4H PRN PO 10/04/17 16:00 11/03/17 15:59 Al Hydrox/Mg Hydrox/Simethicone (Maalox Max Susp) 15 ml Q4H PRN PO 10/04/17 16:00 11/03/17 15:59 Magnesium Hydroxide (Milk Of Magnesia Susp) 30 ml Q12H PRN PO 10/04/17 16:00 11/03/17 15:59 Zolpidem Tartrate (Ambien Tab) 5 mg HSZ PRN PO 10/04/17 16:00 11/03/17 15:59 Ondansetron HCl (Zofran Inj) 4 mg Q6H PRN IV 10/04/17 16:00 11/03/17 15:59 Nitroglycerin (Nitrostat Tab) 0.4 mg UD PRN SL 10/04/17 16:00 11/03/17 15:59 Morphine Sulfate (MoRPHine SULFATE INJ) 2 mg Q30M PRN IV 10/04/17 16:00 10/18/17 15:59 Polyethylene (Miralax Powder Packet) 17 gm DAILY PRN PO 10/04/17 16:00 11/03/17 15:59 Aspirin (Ecotrin Tab) 81 mg DAILY PO 10/05/17 09:00 11/04/17 08:59 10/05/17 08:34 81 MG Digoxin (Lanoxin Tab) 0.125 mg DAILY@16 PO 10/05/17 16:00 11/04/17 15:59 10/05/17 15:37 0.125 MG Ferrous Sulfate (Feosol Tab) 325 mg BID PO 10/04/17 21:00 11/03/17 20:59 10/05/17 08:34 325 MG Gabapentin (Neurontin Tab) 600 mg DAILY PO 10/05/17 09:00 11/04/17 08:59 10/05/17 08:34 600 MG Lamotrigine (Lamictal Tab) 100 mg QAM PO 10/05/17 09:00 11/04/17 08:59 10/05/17 08:34 100 MG Magnesium Oxide (Mag-Ox Tab) 400 mg BID PO 10/04/17 21:00 11/03/17 20:59 10/05/17 08:34 400 MG Simvastatin (Zocor Tab) 40 mg DAILY PO 10/05/17 09:00 11/04/17 08:59 10/05/17 08:34 40 MG Warfarin Sodium (Coumadin Tab) 5 mg MoWeFr@1600 PO 10/04/17 16:00 11/03/17 15:59 10/04/17 18:16 5 MG Warfarin Sodium (Coumadin Tab) 10 mg SuTuThSa@1600 PO 10/05/17 16:00 11/04/17 15:59 10/05/17 15:37 10 MG Diltiazem HCl (Cardizem Cd Cap) 300 mg DAILY PO 10/05/17 09:00 11/04/17 08:59 10/05/17 08:34 300 MG Insulin Glargine (Lantus Solostar Pen) 14 units DAILY SC 10/05/17 09:00 11/04/17 08:59 10/05/17 08:41 14 UNITS Lacosamide (Vimpat Tab) 200 mg BID PO 10/04/17 21:00 11/03/17 20:59 10/05/17 08:33 200 MG Lamotrigine (Lamictal Tab) 200 mg QPM PO 10/04/17 21:00 11/03/17 20:59 10/04/17 20:49 200 MG Insulin Aspart (novoLOG ASPART) SLIDING SCALE G... ACHS SC 10/04/17 16:00 11/03/17 15:59 10/05/17 12:54 8 UNITS Hydralazine HCl (HydrALAZINE INJ) 10 mg Q6H PRN IV. 10/04/17 16:00 11/03/17 15:59 10/05/17 01:35 10 MG Objective Vital Signs Date Time Temp Pulse Resp B/P (MAP) Pulse Ox O2 Delivery O2 Flow Rate FiO2 10/05/17 15:48 37.1 64 18 143/77 (99) 97 Room Air 10/05/17 15:37 72 10/05/17 12:28 Room Air 10/05/17 11:50 36.8 75 18 111/84 (93) 96 Room Air 10/05/17 08:40 Room Air 10/05/17 07:43 36.6 67 18 177/96 (123) 93 Room Air 10/05/17 06:05 85 182/73 10/05/17 04:31 36.8 90 16 182/73 (109) 96 Room Air 10/05/17 04:00 Room Air 10/05/17 03:45 36.8 80 20 175/84 (114) 96 Room Air 10/05/17 02:30 73 181/80 (113) 10/05/17 00:00 36.7 74 18 173/95 (121) 93 Room Air 10/05/17 00:00 Room Air 10/04/17 23:46 37.5 80 20 144/60 (88) 91 Room Air 10/04/17 20:00 36.6 78 18 201/89 98 Room Air 180/96 10/04/17 19:48 36.7 68 18 174/84 (114) 93 Room Air Physical Exam General Appearance: WD/WN, no apparent distress Eyes: normal inspection, EOMI, sclerae normal ENT: normal ENT inspection, hearing grossly normal, pharynx normal Neck: supple, no adenopathy, no JVD, trachea midline Respiratory/Chest: chest non-tender, lungs clear, normal breath sounds, no respiratory distress, no accessory muscle use Cardiovascular: regular rate, rhythm, no edema, no gallop, no JVD, no murmur Abdomen: normal bowel sounds, non tender, soft, no organomegaly Extremities: normal range of motion, non-tender, normal inspection, no pedal edema, no calf tenderness, pelvis stable Neurologic/Psychiatric: algorithm developer II-XII nml as tested, no motor/sensory deficits, alert, normal mood/affect, + disoriented (knows person, place, no idea of time or current events or her current situation) Laboratory Results Last 24 Hours Test 10/04/17 16:31 10/04/17 17:47 10/04/17 20:28 10/04/17 21:00 Vitamin B12 Level 376 pg/mL Bedside Glucose 117 mg/dl 148 mg/dl Creatine Kinase MB Ratio Test 10/04/17 21:03 10/05/17 05:00 10/05/17 05:59 10/05/17 07:24 Creatine Kinase MB 0.7 ng/ml 0.7 ng/ml Troponin I < 0.015 ng/ml 0.018 ng/ml Hepatitis C Antibody Screen NEG Creatine Kinase MB Ratio White Blood Count 8.25 K/uL Red Blood Count 4.09 M/uL Hemoglobin 12.9 g/dL Hematocrit 37.2 % Mean Corpuscular Volume 91.0 fL Mean Corpuscular Hemoglobin 31.5 pg Mean Corpuscular Hemoglobin Concent 34.7 g/dl RDW Standard Deviation 44.9 fL RDW Coefficient of Variation 13.5 % Platelet Count 174 K/uL Mean Platelet Volume 9.1 fL Prothrombin Time 23.1 SECONDS Prothromb Time International Ratio 2.2 Sodium Level 137 mmol/L Potassium Level 3.8 mmol/L Chloride Level 107 mmol/L Carbon Dioxide Level 25 mmol/L Anion Gap 6.0 mmol/L Blood Urea Nitrogen 26 mg/dl Creatinine 0.99 mg/dl Est Creatinine Clear Calc Drug Dose 43.0 ml/min Estimated GFR () 67.9 Estimated GFR (Non- 58.6 BUN/Creatinine Ratio 26.3 Random Glucose 179 mg/dl Estimated Average Glucose 166 mg/dl Hemoglobin A1c 7.4 % Calcium Level 9.7 mg/dl Bedside Glucose 200 mg/dl Test 10/05/17 11:32 Bedside Glucose 201 mg/dl Assessment and Plan Patient is a pleasant 67 y/o female, with PMHx of CVA, seizure disorder, a.fib, HTN, T2DM, CKD stage III, and HLD who presented to the ED because of confusion x1 day. Encephalopathy: unclear etiology at this time no etiology on labs or CT head, no infection lamictal level will take days to return not back to baseline, will check EEG and ammonia lever per neurology recs follow up tomorrow Seizure disorder: Continue Lamictal, Vimpat, Gabapentin no seizures while admitted T2DM w/ hyperglycemia: - Check hgbA1c : 7.8 - Hold Metformin while inpatient - Continue Toujeo 14 u daily, sugars in the low 200's - BSG ACHS and ISS CKD stage III- follows w/ Dr. Dalton: - Bump in personal injury specialist to 1.20 on admission, resolved today with Cr of 0.99 - IVF @ 100 ml/hr, d/c today - Hold nephrotoxic agents and renally dose medications as appropriate HTN: - Hold Lisinopril and Lasix due to bump in personal injury specialist - can resume tomorrow - IV Hydralazine PRN HLD: Continue Zocor A.fib- rate controlled: - Continue ASA 81 mg daily, Digoxin, Diltazem, Mag supplement - Continue Warfarin- follow PT/INR and adjust PRN DVT prophylaxis: Warfarin Code status: LEVEL I, FULL Dispo: From home- PT/OT and CM consulted
[2017-10-06] VITALS (10 sets, daily range): BP systolic 151–186; BP diastolic 73–111; PULSE 62–114; TEMP 36.4–36.9; O2SAT 90–98
[2017-10-06] MEDS ORDERED: METOPROLOL TARTRATE 1 MG/ML VIAL IV STA (01:09)
[2017-10-06] MEDS ORDERED: NURSING VERBAL MED ORDER ONE (01:15)
[2017-10-06 06:16] LABS: HEMATOCRIT 39.1 % (37-47); HEMOGLOBIN 13.8 g/dL (12.0-16.0); MEAN CELL VOLUME 90.3 fL (80-100); MEAN CORPUSCULAR HEMOGLOBIN 31.9 pg (25-34); MEAN CORPUSCULAR HGB CONC 35.3 g/dl (32-36); PLATELET COUNT 197 K/uL (130-400); RED CELL DISTRIBUTION WIDTH CV 13.7 % (11.5-14.5); RED CELL DISTRIBUTION WIDTH SD 45.4 fL (36.4-46.3); WHITE BLOOD COUNT 9.91 K/uL (4.8-10.8)
[2017-10-06 06:17] LABS: MEAN PLATELET VOLUME 9.3 fL (7.4-10.4)
[2017-10-06 06:35] LABS: INR 1.8 (0.9-1.1)
[2017-10-06 06:58] LABS: CALCIUM 10.6 mg/dl (8.5-10.1); CREATININE 1.07 mg/dl (0.60-1.20); POTASSIUM 4.1 mmol/L (3.5-5.1)
[2017-10-06] MEDS: DILTIAZEM HCL 300 MG CAPCR PO SCH (08:07)
[2017-10-06] MEDS: GABAPENTIN 600 MG TAB PO SCH (08:07)
[2017-10-06] MEDS: ASPIRIN 81 MG ECTAB PO SCH (08:07)
[2017-10-06] MEDS: FERROUS SULFATE 325 MG TAB PO SCH ×2 (08:07→22:04)
[2017-10-06] MEDS: SIMVASTATIN 40 MG TAB PO SCH (08:07)
[2017-10-06] MEDS: MAGNESIUM OXIDE 400 MG TAB PO SCH ×2 (08:07→22:05)
[2017-10-06] MEDS: LACOSAMIDE 50 MG TAB PO SCH ×2 (08:08→22:06)
[2017-10-06] MEDS: INSULIN GLARGINE SOLOSTAR 100 UNITS/ML 3 ML PEN SC SCH (08:17)
[2017-10-06] MEDS: INSULIN ASPART 100 UNITS/ML 3 ML PEN SC SCH ×4 (08:17→22:09)
--- NOTE | 2017-10-06 08:40 | Neurology Progress Notes ---
Neurology Progress Note Date of Service Oct 06, 2017. Subjective No changes from yesterday. No new neurological symptoms. Objective Date Time Temp Pulse Resp B/P (MAP) Pulse Ox O2 Delivery O2 Flow Rate FiO2 10/06/17 07:45 Room Air 10/06/17 07:30 36.8 65 18 162/73 (102) 98 Room Air 10/06/17 04:00 Room Air 10/06/17 03:30 36.7 80 18 166/83 (110) 90 Room Air 10/06/17 01:21 114 172/80 10/06/17 01:00 114 172/80 (110) 10/06/17 00:00 36.9 91 18 176/111 (132) 96 Room Air 10/06/17 00:00 Room Air 10/05/17 20:06 97 Room Air 10/05/17 19:57 36.7 68 18 172/84 (113) 96 Room Air 10/05/17 16:21 97 Room Air 10/05/17 15:48 37.1 64 18 143/77 (99) 97 Room Air 10/05/17 15:37 72 10/05/17 12:28 Room Air 10/05/17 11:50 36.8 75 18 111/84 (93) 96 Room Air 10/05/17 08:40 Room Air Last 24 Hours Test 10/05/17 11:32 10/05/17 16:26 10/05/17 20:46 10/06/17 06:09 Bedside Glucose 201 mg/dl 147 mg/dl 155 mg/dl White Blood Count 9.91 K/uL Red Blood Count 4.33 M/uL Hemoglobin 13.8 g/dL Hematocrit 39.1 % Mean Corpuscular Volume 90.3 fL Mean Corpuscular Hemoglobin 31.9 pg Mean Corpuscular Hemoglobin Concent 35.3 g/dl RDW Standard Deviation 45.4 fL RDW Coefficient of Variation 13.7 % Platelet Count 197 K/uL Mean Platelet Volume 9.3 fL Prothrombin Time 18.5 SECONDS Prothromb Time International Ratio 1.8 Sodium Level 137 mmol/L Potassium Level 4.1 mmol/L Chloride Level 108 mmol/L Carbon Dioxide Level 23 mmol/L Anion Gap 6.0 mmol/L Blood Urea Nitrogen 28 mg/dl Creatinine 1.07 mg/dl Est Creatinine Clear Calc Drug Dose 39.8 ml/min Estimated GFR () 61.8 Estimated GFR (Non- 53.3 BUN/Creatinine Ratio 25.7 Random Glucose 233 mg/dl Calcium Level 10.6 mg/dl Ammonia 19.0 umol/L Test 10/06/17 07:30 Bedside Glucose 228 mg/dl Exam: Gen.: Patient is alert and in no acute distress lying in bed Neurological examination: Mental status: Patient is alert and oriented to person only. Attention concentration normal for the situation. Remote and recent memory impaired. Speech is fluent without any dysarthria. May have some mild expressive aphasia at times Cranial nerves: No facial asymmetry noted. Hearing grossly intact voice. Strength: moving all extremities. Station within the bed is normal. Current Inpatient Medications Medications (Trade) Dose Ordered Sig/Kimberlee Route Start Time Stop Time Status Last Admin Dose Admin Acetaminophen (Tylenol Tab) 650 mg Q4H PRN PO 10/04/17 16:00 11/03/17 15:59 Al Hydrox/Mg Hydrox/Simethicone (Maalox Max Susp) 15 ml Q4H PRN PO 10/04/17 16:00 11/03/17 15:59 Magnesium Hydroxide (Milk Of Magnesia Susp) 30 ml Q12H PRN PO 10/04/17 16:00 11/03/17 15:59 Zolpidem Tartrate (Ambien Tab) 5 mg HSZ PRN PO 10/04/17 16:00 11/03/17 15:59 Ondansetron HCl (Zofran Inj) 4 mg Q6H PRN IV 10/04/17 16:00 11/03/17 15:59 Nitroglycerin (Nitrostat Tab) 0.4 mg UD PRN SL 10/04/17 16:00 11/03/17 15:59 Morphine Sulfate (MoRPHine SULFATE INJ) 2 mg Q30M PRN IV 10/04/17 16:00 10/18/17 15:59 Polyethylene (Miralax Powder Packet) 17 gm DAILY PRN PO 10/04/17 16:00 11/03/17 15:59 Aspirin (Ecotrin Tab) 81 mg DAILY PO 10/05/17 09:00 11/04/17 08:59 10/06/17 08:07 81 MG Digoxin (Lanoxin Tab) 0.125 mg DAILY@16 PO 3/6/18 16:00 11/04/17 15:59 10/05/17 15:37 0.125 MG Ferrous Sulfate (Feosol Tab) 325 mg BID PO 10/04/17 21:00 11/03/17 20:59 10/06/17 08:07 325 MG Gabapentin (Neurontin Tab) 600 mg DAILY PO 10/05/17 09:00 11/04/17 08:59 10/06/17 08:07 600 MG Lamotrigine (Lamictal Tab) 100 mg QAM PO 10/05/17 09:00 11/04/17 08:59 10/06/17 08:07 100 MG Magnesium Oxide (Mag-Ox Tab) 400 mg BID PO 10/04/17 21:00 11/03/17 20:59 10/06/17 08:07 400 MG Simvastatin (Zocor Tab) 40 mg DAILY PO 10/05/17 09:00 11/04/17 08:59 10/06/17 08:07 40 MG Warfarin Sodium (Coumadin Tab) 5 mg MoWeFr@1600 PO 10/04/17 16:00 11/03/17 15:59 10/04/17 18:16 5 MG Warfarin Sodium (Coumadin Tab) 10 mg SuTuThSa@1600 PO 10/05/17 16:00 11/04/17 15:59 10/05/17 15:37 10 MG Diltiazem HCl (Cardizem Cd Cap) 300 mg DAILY PO 10/05/17 09:00 11/04/17 08:59 10/06/17 08:07 300 MG Insulin Glargine (Lantus Solostar Pen) 14 units DAILY SC 10/05/17 09:00 11/04/17 08:59 10/06/17 08:17 14 UNITS Lacosamide (Vimpat Tab) 200 mg BID PO 10/04/17 21:00 11/03/17 20:59 10/06/17 08:08 200 MG Lamotrigine (Lamictal Tab) 200 mg QPM PO 10/04/17 21:00 11/03/17 20:59 10/05/17 20:58 200 MG Insulin Aspart (novoLOG ASPART) SLIDING SCALE G... ACHS SC 10/04/17 16:00 11/03/17 15:59 10/06/17 08:17 7 UNITS Hydralazine HCl (HydrALAZINE INJ) 10 mg Q6H PRN IV. 10/04/17 16:00 11/03/17 15:59 10/05/17 23:25 10 MG Impression This is a 67-year-old female who presents with acute encephalopathy of unknown etiology. At this time there does not appear to be anything specific in her history or workup suggestive of TIA, stroke, or seizure. Certainly she is at high risk for focal seizures with a right temporal lobe ischemic stroke in the past. Cannot rule out that she had an unwitnessed seizure causing confusion. Currently the patient reports that she is back at her baseline but uncertain what her normal cognitive baseline is. I suspect that the patient is likely at her cognitive baseline Plan EEG was reviewed by myself this morning and noted to have right temporal sharp waves and intermittent slowing which would be consistent with her structural lesion and history of seizures. At this time I do not recommend any changes to the patient's medications. Can follow-up with her outpatient neurologist for medication management. Lamictal level is pending but could take several days to come back. Thank you for allowing me to participate in this patient's care. If there is any questions or concerns, feel free to call/page me.
--- NOTE | 2017-10-06 08:46 | EEG Procedure Note ---
EEG Procedure Note Date of Service Oct 06, 2017. Start / End Times Start Time: 6:15 AM End Time: 6:35 AM Referring Physician Daryn Mcdonald History This is a 67-year-old female with history of seizures who presents with acute encephalopathy. EEG for further evaluation of possible seizure etiology. Home Medication List Scheduled Aspirin (Aspirin Ec), 81 MG PO DAILY Digoxin (Digitek), 0.5 TAB PO DAILY Diltiazem Hcl Extended Release (Diltiazem Hcl), 300 MG PO DAILY Ferrous Sulfate (Ferrous Sulfate), 325 MG PO BID Furosemide (Lasix), 20 MG PO DAILY Gabapentin (Neurontin), 600 MG PO DAILY Insulin Glargine (Toujeo Solostar), 14 UNITS SC DAILY Lacosamide (Vimpat), 200 MG PO BID Lamotrigine (Lamictal), 100 MG PO QAM Lamotrigine (Lamictal), 200 MG PO QPM Lisinopril (Zestril), 20 MG PO BID Magnesium Oxide (Mag-Ox), 400 MG PO BID Metformin HCl (Metformin HCl ER), 1,000 MG PO BID Simvastatin (Zocor), 40 MG PO DAILY Warfarin Sod (Jantoven), 5 MG PO MWF Warfarin Sod (Jantoven), 10 MG PO [id number] Inpatient Medication List Current Inpatient Medications Medications (Trade) Dose Ordered Sig/Kimberlee Route Start Time Stop Time Status Last Admin Dose Admin Acetaminophen (Tylenol Tab) 650 mg Q4H PRN PO 10/04/17 16:00 11/03/17 15:59 Al Hydrox/Mg Hydrox/Simethicone (Maalox Max Susp) 15 ml Q4H PRN PO 10/04/17 16:00 11/03/17 15:59 Magnesium Hydroxide (Milk Of Magnesia Susp) 30 ml Q12H PRN PO 10/04/17 16:00 11/03/17 15:59 Zolpidem Tartrate (Ambien Tab) 5 mg HSZ PRN PO 10/04/17 16:00 11/03/17 15:59 Ondansetron HCl (Zofran Inj) 4 mg Q6H PRN IV 10/04/17 16:00 11/03/17 15:59 Nitroglycerin (Nitrostat Tab) 0.4 mg UD PRN SL 3/5/18 16:00 11/03/17 15:59 Morphine Sulfate (MoRPHine SULFATE INJ) 2 mg Q30M PRN IV 10/04/17 16:00 10/18/17 15:59 Polyethylene (Miralax Powder Packet) 17 gm DAILY PRN PO 10/04/17 16:00 11/03/17 15:59 Aspirin (Ecotrin Tab) 81 mg DAILY PO 10/05/17 09:00 11/04/17 08:59 10/06/17 08:07 81 MG Digoxin (Lanoxin Tab) 0.125 mg DAILY@16 PO 10/05/17 16:00 11/04/17 15:59 10/05/17 15:37 0.125 MG Ferrous Sulfate (Feosol Tab) 325 mg BID PO 10/04/17 21:00 11/03/17 20:59 10/06/17 08:07 325 MG Gabapentin (Neurontin Tab) 600 mg DAILY PO 10/05/17 09:00 11/04/17 08:59 10/06/17 08:07 600 MG Lamotrigine (Lamictal Tab) 100 mg QAM PO 10/05/17 09:00 11/04/17 08:59 10/06/17 08:07 100 MG Magnesium Oxide (Mag-Ox Tab) 400 mg BID PO 10/04/17 21:00 11/03/17 20:59 10/06/17 08:07 400 MG Simvastatin (Zocor Tab) 40 mg DAILY PO 10/05/17 09:00 11/04/17 08:59 10/06/17 08:07 40 MG Warfarin Sodium (Coumadin Tab) 5 mg MoWeFr@1600 PO 10/04/17 16:00 11/03/17 15:59 10/04/17 18:16 5 MG Warfarin Sodium (Coumadin Tab) 10 mg SuTuThSa@1600 PO 10/05/17 16:00 11/04/17 15:59 10/05/17 15:37 10 MG Diltiazem HCl (Cardizem Cd Cap) 300 mg DAILY PO 10/05/17 09:00 11/04/17 08:59 10/06/17 08:07 300 MG Insulin Glargine (Lantus Solostar Pen) 14 units DAILY SC 10/05/17 09:00 11/04/17 08:59 10/06/17 08:17 14 UNITS Lacosamide (Vimpat Tab) 200 mg BID PO 10/04/17 21:00 11/03/17 20:59 10/06/17 08:08 200 MG Lamotrigine (Lamictal Tab) 200 mg QPM PO 10/04/17 21:00 11/03/17 20:59 10/05/17 20:58 200 MG Insulin Aspart (novoLOG ASPART) SLIDING SCALE G... ACHS SC 10/04/17 16:00 11/03/17 15:59 10/06/17 08:17 7 UNITS Hydralazine HCl (HydrALAZINE INJ) 10 mg Q6H PRN IV. 10/04/17 16:00 11/03/17 15:59 10/05/17 23:25 10 MG Description This is a 21 electrode EEG with a single channel dedicated to limited EKG. The electrodes were placed in accordance with the International 10-20 system. At the start of this recording the patient was in an awake but confused state. Background was poorly organized with a poorly formed anterior to posterior gradient. Background was composed of symmetric moderate amplitude predominantly 6-7 Hz theta frequencies with intermixed alpha and beta frequencies. Photic stimulation at various frequencies did not produce any abnormalities. Hyperventilation was not done. There was no state changes or sleep transients. There was occasional T4 sharp wave with a field to the right temporal area with intermittent mild right temporal slowing. Interpretation This is an abnormal routine EEG secondary to: 1) occasional right temporal sharp waves and intermittent right temporal mild slowing 2) mild to moderate background disorganization and slowing There was no electrographic seizures. Clinical Correlation 1) occasional right temporal sharp waves and intermittent right temporal slowing would be consistent with the patient's known temporal lobe lesion and history of seizures. Occasional right temporal sharp waves do indicate a lower seizure threshold and predisposition towards focal seizures in that area. 2) mild to moderate background disorganization and slowing indicate a mild to moderate encephalopathy of nonspecific etiology.
--- NOTE | 2017-10-06 15:02 | Progress Note ---
Subjective Date of Service: Oct 06, 2017. Subjective Pt evaluation today including: conversation w/ patient, conversation w/ family , physical exam, lab review, review of studies, conversation w/ [employer] consultant, review of inpatient medication list Pain: denies pain PO Intake: adequate Voiding: no voiding problems patient sleeping this AM but woke up knew she was in the hospital, thought it was 1972 reviewed EEG results, discussed with Dr. Hall reviewed labs, ammonia normal discussed with patient's daughter, looking into SNF discussed with CM Problem List Medical Problems: (1) Altered mental status Status: Acute Review of Systems cannot review in detail due to confusion Medications Current Inpatient Medications Medications (Trade) Dose Ordered Sig/Kimberlee Route Start Time Stop Time Status Last Admin Dose Admin Acetaminophen (Tylenol Tab) 650 mg Q4H PRN PO 10/04/17 16:00 11/03/17 15:59 Al Hydrox/Mg Hydrox/Simethicone (Maalox Max Susp) 15 ml Q4H PRN PO 10/04/17 16:00 11/03/17 15:59 Magnesium Hydroxide (Milk Of Magnesia Susp) 30 ml Q12H PRN PO 10/04/17 16:00 11/03/17 15:59 Zolpidem Tartrate (Ambien Tab) 5 mg HSZ PRN PO 10/04/17 16:00 11/03/17 15:59 Ondansetron HCl (Zofran Inj) 4 mg Q6H PRN IV 10/04/17 16:00 11/03/17 15:59 Nitroglycerin (Nitrostat Tab) 0.4 mg UD PRN SL 10/04/17 16:00 11/03/17 15:59 Morphine Sulfate (MoRPHine SULFATE INJ) 2 mg Q30M PRN IV 10/04/17 16:00 10/18/17 15:59 Polyethylene (Miralax Powder Packet) 17 gm DAILY PRN PO 10/04/17 16:00 11/03/17 15:59 Aspirin (Ecotrin Tab) 81 mg DAILY PO 10/05/17 09:00 11/04/17 08:59 10/06/17 08:07 81 MG Digoxin (Lanoxin Tab) 0.125 mg DAILY@16 PO 10/05/17 16:00 11/04/17 15:59 10/05/17 15:37 0.125 MG Ferrous Sulfate (Feosol Tab) 325 mg BID PO 10/04/17 21:00 11/03/17 20:59 10/06/17 08:07 325 MG Gabapentin (Neurontin Tab) 600 mg DAILY PO 10/05/17 09:00 11/04/17 08:59 10/06/17 08:07 600 MG Lamotrigine (Lamictal Tab) 100 mg QAM PO 10/05/17 09:00 11/04/17 08:59 10/06/17 08:07 100 MG Magnesium Oxide (Mag-Ox Tab) 400 mg BID PO 10/04/17 21:00 11/03/17 20:59 10/06/17 08:07 400 MG Simvastatin (Zocor Tab) 40 mg DAILY PO 10/05/17 09:00 11/04/17 08:59 10/06/17 08:07 40 MG Warfarin Sodium (Coumadin Tab) 5 mg MoWeFr@1600 PO 10/04/17 16:00 11/03/17 15:59 10/04/17 18:16 5 MG Warfarin Sodium (Coumadin Tab) 10 mg SuTuThSa@1600 PO 10/05/17 16:00 11/04/17 15:59 10/05/17 15:37 10 MG Diltiazem HCl (Cardizem Cd Cap) 300 mg DAILY PO 10/05/17 09:00 11/04/17 08:59 10/06/17 08:07 300 MG Insulin Glargine (Lantus Solostar Pen) 14 units DAILY SC 10/05/17 09:00 11/04/17 08:59 10/06/17 08:17 14 UNITS Lacosamide (Vimpat Tab) 200 mg BID PO 10/04/17 21:00 11/03/17 20:59 10/06/17 08:08 200 MG Lamotrigine (Lamictal Tab) 200 mg QPM PO 10/04/17 21:00 11/03/17 20:59 10/05/17 20:58 200 MG Insulin Aspart (novoLOG ASPART) SLIDING SCALE G... ACHS SC 10/04/17 16:00 11/03/17 15:59 10/06/17 13:12 4 UNITS Hydralazine HCl (HydrALAZINE INJ) 10 mg Q6H PRN IV. 10/04/17 16:00 11/03/17 15:59 10/05/17 23:25 10 MG Objective Vital Signs Date Time Temp Pulse Resp B/P (MAP) Pulse Ox O2 Delivery O2 Flow Rate FiO2 10/06/17 11:45 Room Air 10/06/17 10:52 36.9 70 18 166/78 (107) 98 Room Air 10/06/17 07:45 Room Air 10/06/17 07:30 36.8 65 18 162/73 (102) 98 Room Air 10/06/17 04:00 Room Air 10/06/17 03:30 36.7 80 18 166/83 (110) 90 Room Air 10/06/17 01:21 114 172/80 10/06/17 01:00 114 172/80 (110) 10/06/17 00:00 36.9 91 18 176/111 (132) 96 Room Air 10/06/17 00:00 Room Air 10/05/17 20:06 97 Room Air 10/05/17 19:57 36.7 68 18 172/84 (113) 96 Room Air 10/05/17 16:21 97 Room Air 10/05/17 15:48 37.1 64 18 143/77 (99) 97 Room Air 10/05/17 15:37 72 Physical Exam General Appearance: WD/WN, no apparent distress Eyes: normal inspection, EOMI, sclerae normal ENT: normal ENT inspection, hearing grossly normal, pharynx normal Neck: supple, no adenopathy, no JVD, trachea midline Respiratory/Chest: chest non-tender, lungs clear, normal breath sounds, no respiratory distress, no accessory muscle use Cardiovascular: regular rate, rhythm, no edema, no gallop, no JVD, no murmur Abdomen: normal bowel sounds, non tender, soft, no organomegaly Extremities: normal range of motion, non-tender, normal inspection, no pedal edema, no calf tenderness, pelvis stable Neurologic/Psychiatric: addressograph operator II-XII nml as tested, no motor/sensory deficits, alert, normal mood/affect, + disoriented (knows place, unsure of year, month, situation) Skin: normal color, warm/dry, no rash Lymphatic: no adenopathy Laboratory Results Last 24 Hours Test 10/05/17 16:26 10/05/17 20:46 10/06/17 06:09 10/06/17 07:30 Bedside Glucose 147 mg/dl 155 mg/dl 228 mg/dl White Blood Count 9.91 K/uL Red Blood Count 4.33 M/uL Hemoglobin 13.8 g/dL Hematocrit 39.1 % Mean Corpuscular Volume 90.3 fL Mean Corpuscular Hemoglobin 31.9 pg Mean Corpuscular Hemoglobin Concent 35.3 g/dl RDW Standard Deviation 45.4 fL RDW Coefficient of Variation 13.7 % Platelet Count 197 K/uL Mean Platelet Volume 9.3 fL Prothrombin Time 18.5 SECONDS Prothromb Time International Ratio 1.8 Sodium Level 137 mmol/L Potassium Level 4.1 mmol/L Chloride Level 108 mmol/L Carbon Dioxide Level 23 mmol/L Anion Gap 6.0 mmol/L Blood Urea Nitrogen 28 mg/dl Creatinine 1.07 mg/dl Est Creatinine Clear Calc Drug Dose 39.8 ml/min Estimated GFR () 61.8 Estimated GFR (Non- 53.3 BUN/Creatinine Ratio 25.7 Random Glucose 233 mg/dl Calcium Level 10.6 mg/dl Ammonia 19.0 umol/L Test 10/06/17 11:21 Bedside Glucose 285 mg/dl Assessment and Plan Patient is a pleasant 67 y/o female, with PMHx of CVA, seizure disorder, a.fib, HTN, T2DM, CKD stage III, and HLD who presented to the ED because of confusion x1 day. Encephalopathy: unclear etiology at this time no etiology on labs or CT head, no infection lamictal level will take days to return, still pending today ammonia level normal EEG with occasional right temporal sharp waves and intermittent right temporal mild slowing at risk for focal seizures cannot r/o that she had an unwitnessed focal seizure causing confusion Seizure disorder: Continue Lamictal, Vimpat, Gabapentin no seizures while admitted follow up on Lamictal level T2DM w/ hyperglycemia: - Check hgbA1c : 7.8 - Hold Metformin while inpatient - Continue Toujeo 14 u daily, sugars in the 200's - BSG ACHS and ISS CKD stage III- follows w/ Dr. Dalton: - Bump in powder hand to 1.20 on admission, resolved yesterday with Cr of 0.99 - d/c fluids yesterday - Hold nephrotoxic agents and renally dose medications as appropriate HTN: - Hold Lisinopril and Lasix due to bump in powder hand - resume today HLD: Continue Zocor A.fib- rate controlled: - Continue ASA 81 mg daily, Digoxin, Diltazem, Mag supplement - Continue Warfarin- follow PT/INR and adjust PRN DVT prophylaxis: Warfarin Code status: LEVEL I, FULL Dispo: plan for SNF referral, PT/OT ordered
[2017-10-06] MEDS: WARFARIN SOD 5 MG TAB PO SCH (15:59)
[2017-10-06] MEDS: DIGOXIN 0.125 MG TAB PO SCH (16:00)
[2017-10-06] MEDS: LISINOPRIL 20 MG TAB PO SCH (22:06)
[2017-10-06] MEDS: HydrALAZINE HCL 20 MG/ML VIAL IV. PRN (23:25)
[2017-10-07] VITALS (9 sets, daily range): BP systolic 125–162; BP diastolic 66–90; PULSE 64–85; TEMP 36.3–36.8; O2SAT 93–97
[2017-10-07] MEDS: FERROUS SULFATE 325 MG TAB PO SCH ×2 (07:30→20:31)
[2017-10-07] MEDS: GABAPENTIN 600 MG TAB PO SCH (07:30)
[2017-10-07] MEDS: FUROSEMIDE 20 MG TAB PO SCH (07:30)
[2017-10-07] MEDS: MAGNESIUM OXIDE 400 MG TAB PO SCH ×2 (07:30→20:34)
[2017-10-07] MEDS: DILTIAZEM HCL 300 MG CAPCR PO SCH (07:30)
[2017-10-07] MEDS: ASPIRIN 81 MG ECTAB PO SCH (07:30)
[2017-10-07] MEDS: SIMVASTATIN 40 MG TAB PO SCH (07:31)
[2017-10-07] MEDS: LISINOPRIL 20 MG TAB PO SCH ×2 (07:31→20:32)
[2017-10-07] MEDS: LACOSAMIDE 50 MG TAB PO SCH ×2 (07:31→20:36)
[2017-10-07] MEDS: INSULIN GLARGINE SOLOSTAR 100 UNITS/ML 3 ML PEN SC SCH (08:58)
[2017-10-07] MEDS: INSULIN ASPART 100 UNITS/ML 3 ML PEN SC SCH ×4 (08:58→20:38)
--- NOTE | 2017-10-07 10:08 | DIAGNOSTIC IMAGING REPORT ---
CT HEAD WITHOUT CONTRAST (CT) CLINICAL HISTORY: Change in mental status. Possible acute stroke. COMPARISON STUDY: 10/04/2017 TECHNIQUE: Axial CT of the brain is performed from the vertex to the skull base. IV contrast was not administered for this examination. A dose lowering technique was utilized adhering to the principles of ALARA. CT DOSE: 537.48 mGy.cm FINDINGS: No intra or extra-axial mass lesions are visualized. There is no CT evidence of acute cortical infarction. There is no evidence of midline shift. There is no acute hemorrhage. No calvarial fractures are visualized. There are patchy white matter hypodensities likely on a small vessel basis. There is an old right temporal lobe infarct. There are bilateral thalamic lacunar infarcts. The left thalamic infarct appears minimally larger than on the prior study but this could relate to technical factors There is no evidence of pathologic ventricular dilatation. There is no evidence of acute sinusitis IMPRESSION: 1. No evidence of acute hemorrhage 2. Old right temporal lobe infarct 3. Bilateral thalamic infarcts. The left thalamic infarct appears equivocally larger than on the preceding study Electronically signed by: Caleb Lawrence M.D. 10/07/2017 10:07 AM Dictated Date/Time: 10/07/2017 10:04 AM
[2017-10-07 11:32] LABS: HEMATOCRIT 40.6 % (37-47); MEAN CELL VOLUME 91.4 fL (80-100); MEAN CORPUSCULAR HEMOGLOBIN 31.5 pg (25-34); MEAN CORPUSCULAR HGB CONC 34.5 g/dl (32-36); MEAN PLATELET VOLUME 9.6 fL (7.4-10.4); PLATELET COUNT 216 K/uL (130-400); RED CELL DISTRIBUTION WIDTH SD 46.1 fL (36.4-46.3)
[2017-10-07 11:39] LABS: INR 1.5 (0.9-1.1)
[2017-10-07 11:49] LABS: CALCIUM 10.6 mg/dl (8.5-10.1); CREATININE 1.21 mg/dl (0.60-1.20)
--- NOTE | 2017-10-07 14:41 | Progress Note ---
Subjective Date of Service: Oct 07, 2017. Subjective Pt evaluation today including: conversation w/ patient, conversation w/ family , physical exam, review of studies, conversation w/ guidance consultant, review of inpatient medication list Pain: denies pain PO Intake: adequate Voiding: no voiding problems patient still confused, knows she is in hospital in [place], knows year thinks she just visited her daughter's house yesterday cannot remember why she is here repeat CT head shows old strokes, nothing new labs reviewed, Cr 1.2, Ca is 10.6 Problem List Medical Problems: (1) Altered mental status Status: Acute Review of Systems Neurologic: + memory loss, + weakness All Other Systems: Reviewed and Negative Medications Current Inpatient Medications Medications (Trade) Dose Ordered Sig/Kimberlee Route Start Time Stop Time Status Last Admin Dose Admin Acetaminophen (Tylenol Tab) 650 mg Q4H PRN PO 10/04/17 16:00 11/03/17 15:59 Al Hydrox/Mg Hydrox/Simethicone (Maalox Max Susp) 15 ml Q4H PRN PO 10/04/17 16:00 11/03/17 15:59 Magnesium Hydroxide (Milk Of Magnesia Susp) 30 ml Q12H PRN PO 10/04/17 16:00 11/03/17 15:59 Zolpidem Tartrate (Ambien Tab) 5 mg HSZ PRN PO 10/04/17 16:00 11/03/17 15:59 Ondansetron HCl (Zofran Inj) 4 mg Q6H PRN IV 10/04/17 16:00 11/03/17 15:59 Nitroglycerin (Nitrostat Tab) 0.4 mg UD PRN SL 10/04/17 16:00 11/03/17 15:59 Morphine Sulfate (MoRPHine SULFATE INJ) 2 mg Q30M PRN IV 10/04/17 16:00 10/18/17 15:59 Polyethylene (Miralax Powder Packet) 17 gm DAILY PRN PO 10/04/17 16:00 11/03/17 15:59 Aspirin (Ecotrin Tab) 81 mg DAILY PO 10/05/17 09:00 11/04/17 08:59 10/07/17 07:30 81 MG Digoxin (Lanoxin Tab) 0.125 mg DAILY@16 PO 10/05/17 16:00 11/04/17 15:59 10/06/17 16:00 0.125 MG Ferrous Sulfate (Feosol Tab) 325 mg BID PO 10/04/17 21:00 11/03/17 20:59 10/07/17 07:30 325 MG Gabapentin (Neurontin Tab) 600 mg DAILY PO 10/05/17 09:00 11/04/17 08:59 10/07/17 07:30 600 MG Lamotrigine (Lamictal Tab) 100 mg QAM PO 10/05/17 09:00 11/04/17 08:59 10/07/17 07:30 100 MG Magnesium Oxide (Mag-Ox Tab) 400 mg BID PO 10/04/17 21:00 11/03/17 20:59 10/07/17 07:30 400 MG Simvastatin (Zocor Tab) 40 mg DAILY PO 10/05/17 09:00 11/04/17 08:59 10/07/17 07:31 40 MG Warfarin Sodium (Coumadin Tab) 5 mg MoWeFr@1600 PO 10/04/17 16:00 11/03/17 15:59 10/06/17 15:59 5 MG Warfarin Sodium (Coumadin Tab) 10 mg SuTuThSa@1600 PO 10/05/17 16:00 11/04/17 15:59 10/05/17 15:37 10 MG Diltiazem HCl (Cardizem Cd Cap) 300 mg DAILY PO 10/05/17 09:00 11/04/17 08:59 10/07/17 07:30 300 MG Insulin Glargine (Lantus Solostar Pen) 14 units DAILY SC 10/05/17 09:00 11/04/17 08:59 10/07/17 08:58 14 UNITS Lacosamide (Vimpat Tab) 200 mg BID PO 10/04/17 21:00 11/03/17 20:59 10/07/17 07:31 200 MG Lamotrigine (Lamictal Tab) 200 mg QPM PO 10/04/17 21:00 11/03/17 20:59 10/06/17 22:05 200 MG Insulin Aspart (novoLOG ASPART) SLIDING SCALE G... ACHS SC 10/04/17 16:00 11/03/17 15:59 10/07/17 12:46 5 UNITS Hydralazine HCl (HydrALAZINE INJ) 10 mg Q6H PRN IV. 10/04/17 16:00 11/03/17 15:59 10/06/17 23:25 10 MG Furosemide (Lasix Tab) 20 mg DAILY PO 10/07/17 09:00 11/06/17 08:59 10/07/17 07:30 20 MG Lisinopril (Zestril Tab) 20 mg BID PO 10/06/17 21:00 11/05/17 20:59 10/07/17 07:31 20 MG Objective Vital Signs Date Time Temp Pulse Resp B/P (MAP) Pulse Ox O2 Delivery O2 Flow Rate FiO2 10/07/17 12:04 Room Air 10/07/17 11:19 36.6 85 18 125/77 (93) 95 10/07/17 08:07 Room Air 10/07/17 07:22 36.7 79 18 132/66 (88) 96 10/07/17 04:51 36.3 64 18 127/73 (91) 96 Room Air 10/07/17 04:00 Room Air 10/07/17 00:34 149/69 (95) 10/07/17 00:00 Room Air 10/06/17 23:01 36.4 71 18 186/93 (124) 93 Room Air 10/06/17 22:07 164/89 (114) 10/06/17 20:00 Room Air 10/06/17 19:19 36.8 80 18 151/85 (107) 94 Room Air 10/06/17 16:00 Room Air 10/06/17 16:00 64 10/06/17 15:58 64 10/06/17 14:43 36.5 62 18 162/83 (109) 96 Room Air Physical Exam General Appearance: WD/WN, no apparent distress Eyes: normal inspection, EOMI, sclerae normal ENT: normal ENT inspection, hearing grossly normal, pharynx normal Neck: supple, no adenopathy, no JVD, trachea midline Respiratory/Chest: chest non-tender, lungs clear, normal breath sounds, no respiratory distress, no accessory muscle use Cardiovascular: regular rate, rhythm, no edema, no gallop, no JVD, no murmur Abdomen: normal bowel sounds, non tender, soft, no organomegaly Extremities: normal range of motion, non-tender, normal inspection, no pedal edema, no calf tenderness Neurologic/Psychiatric: development coach II-XII nml as tested, no motor/sensory deficits, alert, normal mood/affect, + disoriented Skin: normal color, warm/dry, no rash Laboratory Results Last 24 Hours Test 10/06/17 16:42 10/06/17 20:42 10/07/17 07:46 10/07/17 11:20 Bedside Glucose 74 mg/dl 175 mg/dl 210 mg/dl White Blood Count 10.30 K/uL Red Blood Count 4.44 M/uL Hemoglobin 14.0 g/dL Hematocrit 40.6 % Mean Corpuscular Volume 91.4 fL Mean Corpuscular Hemoglobin 31.5 pg Mean Corpuscular Hemoglobin Concent 34.5 g/dl RDW Standard Deviation 46.1 fL RDW Coefficient of Variation 14.0 % Platelet Count 216 K/uL Mean Platelet Volume 9.6 fL Prothrombin Time 15.7 SECONDS Prothromb Time International Ratio 1.5 Sodium Level 137 mmol/L Potassium Level 4.0 mmol/L Chloride Level 106 mmol/L Carbon Dioxide Level 26 mmol/L Anion Gap 5.0 mmol/L Blood Urea Nitrogen 26 mg/dl Creatinine 1.21 mg/dl Est Creatinine Clear Calc Drug Dose 35.2 ml/min Estimated GFR () 53.2 Estimated GFR (Non- 45.9 BUN/Creatinine Ratio 21.7 Random Glucose 225 mg/dl Calcium Level 10.6 mg/dl Test 10/07/17 11:46 Bedside Glucose 205 mg/dl CT head IMPRESSION: 1. No evidence of acute hemorrhage 2. Old right temporal lobe infarct 3. Bilateral thalamic infarcts. The left thalamic infarct appears equivocally larger than on the preceding study Assessment and Plan Patient is a pleasant 67 y/o female, with PMHx of CVA, seizure disorder, a.fib, HTN, T2DM, CKD stage III, and HLD who presented to the ED because of confusion x1 day. Encephalopathy: still unclear etiology at this time no etiology on labs or CT head, no infection lamictal level still pending at this time ammonia level normal EEG with occasional right temporal sharp waves and intermittent right temporal mild slowing at risk for focal seizures cannot r/o that she had an unwitnessed focal seizure causing confusion per daughter, she typically has 1-2 days of confusion after a seizure going on day 4 of confusion, perhaps now she has some hospital delirium repeat CT head shows old strokes Ca is slightly high at 10.6, not high enough to cause confusion will check PTH level in the AM Seizure disorder: Continue Lamictal, Vimpat, Gabapentin no seizures while admitted follow up on Lamictal level, still not back today T2DM w/ hyperglycemia: - Check hgbA1c : 7.8 - Hold Metformin while inpatient - Continue Toujeo 14 u daily, sugars in the 200's, monitoring for hypoglycemia - BSG ACHS and ISS CKD stage III- follows w/ Dr. Dalton: - cr is 1.2 today, continue Lasix and Lisinopril HTN: stable on Lisinopril HLD: Continue Zocor A.fib- rate controlled: - Continue ASA 81 mg daily, Digoxin, Diltazem, Mag supplement - Continue Warfarin- follow PT/INR, low today, continue home regimen, may need to increase if INR does not improve DVT prophylaxis: Warfarin Code status: LEVEL I, FULL Dispo: planning on personal jail at [facility] tomorrow
[2017-10-07] MEDS: DIGOXIN 0.125 MG TAB PO SCH (16:21)
[2017-10-07] MEDS: WARFARIN SOD 10 MG TAB PO SCH (16:22)
[2017-10-08 04:05] VITALS: BP 150/80; PULSE 67; TEMP 36.7; O2SAT 98
[2017-10-08 06:42] LABS: CALCIUM 10.3 mg/dl (8.5-10.1); CREATININE 1.28 mg/dl (0.60-1.20); POTASSIUM 4.2 mmol/L (3.5-5.1)
[2017-10-08 06:52] VITALS: BP 159/85; PULSE 79; TEMP 36.7; O2SAT 96
[2017-10-08] MEDS: ASPIRIN 81 MG ECTAB PO SCH (08:03)
[2017-10-08] MEDS: DILTIAZEM HCL 300 MG CAPCR PO SCH (08:03)
[2017-10-08] MEDS: FUROSEMIDE 20 MG TAB PO SCH (08:03)
[2017-10-08] MEDS: MAGNESIUM OXIDE 400 MG TAB PO SCH (08:03)
[2017-10-08] MEDS: FERROUS SULFATE 325 MG TAB PO SCH (08:03)
[2017-10-08] MEDS: LACOSAMIDE 50 MG TAB PO SCH (08:04)
[2017-10-08] MEDS: GABAPENTIN 600 MG TAB PO SCH (08:04)
[2017-10-08] MEDS: LISINOPRIL 20 MG TAB PO SCH (08:04)
[2017-10-08] MEDS: SIMVASTATIN 40 MG TAB PO SCH (08:04)
[2017-10-08] MEDS: INSULIN ASPART 100 UNITS/ML 3 ML PEN SC SCH ×2 (08:11→12:35)
[2017-10-08] MEDS: INSULIN GLARGINE SOLOSTAR 100 UNITS/ML 3 ML PEN SC SCH (08:13)
--- NOTE | 2017-10-08 10:04 | Discharge Instructions ---
Discharge Instructions Date of Service Oct 08, 2017. Admission Reason for Admission: Confusion Discharge Discharge Diagnosis / Problem: Confusion, h/o stroke, h/o seizures, mild hypercalcemia Discharge Goals Goal(s): Decrease discomfort, Improve function, Diagnostic testing Activity Recommendations Activity Limitations: resume your previous activity . Instructions / Follow-Up Instructions / Follow-Up Medications: no changes Confusion: no clear etiology could be determined, neurology stated that they could not rule out an unwitnessed focal seizure prior to confusion CT of the head x 2 only showed prior strokes, no new ischemic changes, could not obtain an MRI brain due to pacer/defibrillator no evidence of infection renal function and sodium, potassium normal, ammonia level normal EEG showed some spikes corresponding to right temporal lobe, fitting with h/ o seizure and prior ischemic stroke neurology recommended staying on current anti-epileptics Lamictal level still pending Mild Hypercalcemia: ranged from 9.7 to 10.9 during admission, likely not high enough to cause confusion reviewing prior records, calcium as 10.5 in June so this is not an acute change albumin normal at 3.9 so the levels of calcium are accurate PTH was markedly high at 189 suggesting a primary hyperparathyroidism recommend checking Vitamin D level, renal US and bone density scans as outpatient can follow up with PCP and can be referred to endocrinology if there are any questions about further work up work up can be done outpatient as this has been going on since at least June FOLLOW UP - primary care physician in one week, Dr. Rolon Current Hospital Diet Patient's current hospital diet: AHA Diet (Heart Healthy), Diabetes Type 2 Diet Discharge Diet Recommended Diet: AHA Diet (Heart Healthy), Diabetes Type 2 Diet Procedures Procedures Performed: EEG Pending Studies Studies pending at discharge: yes List of pending studies: lamictal level Laboratory Results Hemoglobin A1c Test 10/05/17 05:59 Range/Units Estimated Average Glucose 166 mg/dl Hemoglobin A1c 7.4 H 4.5-5.6 % Medical Emergencies . Who to Call and When: Medical Emergencies: If at any time you feel your situation is an emergency, please call 911 immediately. . Non-Emergent Contact Non-Emergency issues call your: Primary Care Provider Call Non-Emergent contact if: you have any medication questions . . "Provider Documentation" section prepared by Daryn Mcdonald. . [place] Drug Monitoring Program Search Results: no issues identified
--- NOTE | 2017-10-08 10:21 | Discharge Summary ---
Discharge Summary Date of Service Oct 08, 2017. Discharge Summary Admission Date: Oct 04, 2017 at 16:08 Discharge Date: Oct 08, 2017 Discharge Disposition: Personal care Principal Diagnosis: Altered mental status, confusion Problems/Secondary Diagnoses: H/o ischemic stroke Seizure disorder Atrial fibrillation with pacer/defibrillator DM type II HTN Hypercalcemia CKD stage III Procedures: EEG: occasional spikes in right temporal lobe Consultations: Neurology Medication Reconciliation Continued Medications: Aspirin (Aspirin Ec) 81 Mg Tab 81 MG PO DAILY Digoxin (Digitek) 0.25 Mg Tab 0.5 TAB PO DAILY Diltiazem Hcl Extended Release (Diltiazem Hcl) 300 Mg Cap 300 MG PO DAILY Ferrous Sulfate (Ferrous Sulfate) 325 Mg Tab 325 MG PO BID Furosemide (Lasix) 20 Mg Tab 20 MG PO DAILY, TAB Gabapentin (Neurontin) 300 Mg Cap 600 MG PO DAILY TWO 300 MG CAPSULES Insulin Glargine (Toujeo Solostar) 300 Unit/Ml Inj 14 UNITS SC DAILY Lacosamide (Vimpat) 200 Mg Tab 200 MG PO BID Lamotrigine (Lamictal) 100 Mg Tab 100 MG PO QAM, TAB Lamotrigine (Lamictal) 200 Mg Tab 200 MG PO QPM, TAB Lisinopril (Zestril) 20 Mg Tab 20 MG PO BID, TAB Magnesium Oxide (Mag-Ox) 400 Mg Tab 400 MG PO BID, TAB Metformin HCl (Metformin HCl ER) 1,000 Mg Tab 1000 MG PO BID Simvastatin (Zocor) 40 Mg Tab 40 MG PO DAILY, TAB Warfarin Sod (Jantoven) 5 Mg Tab 5 MG PO MWF, TAB Warfarin Sod (Jantoven) 5 Mg Tab 10 MG PO 4XWK TWO 5 MG TABLETS ON SUN, TUES, THURS, SAT Discharge Exam Patient doing well, still confused, not completely oriented, but pleasant. No pain, breathing well, eating well. No issues urinating or moving bowels. Plan to go to personal care today. Review of Systems: Constitutional: No fever, No chills, No sweats, No weight loss, No weakness , No fatigue, No problem reported Eyes: No worsening of vision, No eye pain, No redness, No discharge, No diplopia, No problem reported ENT: No hearing loss, No unusual epistaxis, No nasal symptoms, No sore throat, No tinnitus, No dental problems, No trouble swallowing, No problem reported Respiratory: No cough, No sputum, No wheezing, No shortness of breath, No dyspnea on exertion, No dyspnea at rest, No hemoptysis, No problem reported Cardiovascular: No chest pain, No orthopnea, No PND, No edema, No claudication, No palpitations, No problem reported Abdomen: No pain, No nausea, No vomiting, No diarrhea, No constipation, No GI bleeding, No problem reported Musculoskeletal: No joint pain, No muscle pain, No swelling, No calf pain, No problem reported Genitourinary - Female: No dysuria, No urinary frequency, No urinary urgency , No urinary incontinence, No urinary retention, No hematuria Neurologic: + memory loss, + weakness, No paralysis, No numbness/tingling, No vertigo, No balance problems, No problem reported Psychiatric: + depression symptoms, No anhedonism, No anxiety, No insomnia, No substance abuse, No problem reported Endocrine: No fatigue, No excessive thirst, No excessive urination, No problem reported Hematologic / Lymphatic: No abnormal bleeding/bruising, No clotting problems , No swollen lymph nodes, No night sweats, No problem reported Integumentary: No rash, No itch, No new/changing skin lesions, No color change, No bleeding, No problem reported Physical Exam: General Appearance: WD/WN, no apparent distress Eyes: normal inspection, EOMI, sclerae normal ENT: normal ENT inspection, hearing grossly normal, pharynx normal Neck: supple, no adenopathy, no JVD, trachea midline Respiratory/Chest: chest non-tender, lungs clear, normal breath sounds, no respiratory distress, no accessory muscle use Cardiovascular: regular rate, rhythm, no edema, no gallop, no JVD, no murmur , normal peripheral pulses Abdomen / GI: normal bowel sounds, non tender, soft, no organomegaly Extremities: normal inspection, no calf tenderness, normal capillary refill , no pedal edema, normal range of motion, pelvis stable 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 Encephalopathy: still unclear etiology at this time no etiology on labs or CT head, no infection lamictal level still pending at this time, will need to follow up outpatient ammonia level normal EEG with occasional right temporal sharp waves and intermittent right temporal mild slowing at risk for focal seizures cannot r/o that she had an unwitnessed focal seizure causing confusion per daughter, she typically has 1-2 days of confusion after a seizure going on day 5 of confusion, perhaps now she has some hospital delirium repeat CT head on 10/07/17 showed old strokes calcium high at 10.3 today, has been high since at least June at 10.5 so would not cause acute change Hypercalcemia with elevated PTH calcium has ranged from 9.7 to 10.9 during this admission albumin is normal at 3.9 so the calcium levels are accurate PTH today is over two times upper limit of normal at 189 suggesting a primary hyperparathyroidism would recommend Vitamin D level, renal US and bone density scans as outpatient can follow up with Dr. Dalton for this issue as she sees him for CKD stage III patient does not take medications that might raise calcium Seizure disorder: Continue Lamictal, Vimpat, Gabapentin no seizures while admitted follow up on Lamictal level, still not back on the day of discharge T2DM w/ hyperglycemia: - Check hgbA1c : 7.8 - Held Metformin while inpatient - Continue Toujeo 14 u daily - BSG ACHS and ISS CKD stage III- follows w/ Dr. Dalton: - cr is 1.2 again today, continue Lasix and Lisinopril HTN: stable on Lisinopril HLD: Continue Zocor A.fib- rate controlled: - Continue ASA 81 mg daily, Digoxin, Diltazem, Mag supplement - Continue Warfarin- follow PT/INR, low today, continue home regimen, may need to increase if INR does not improve DVT prophylaxis: Warfarin Code status: LEVEL I, FULL Dispo: to [facility] today Should check a BMP and INR next week Total Time Spent: Greater than 30 minutes This includes examination of the patient, discharge planning, medication reconciliation, and communication with other providers. Discharge Instructions Please refer to the electronic Patient Visit Report (Discharge Instructions) for additional information. Follow-Up Dr. Rolon in one week Dr. Dalton in 2-3 weeks Additional Copies To Elver Rolon D.O.; Kelton Dalton D.O.
[2017-10-08 10:53] VITALS: BP 121/66; PULSE 79; TEMP 36.6; O2SAT 96
== END 2017-10-08 14:16 | disposition home or self-care (01) | DRG 947 ==
LOC: C.EDB 12:19 → C.MED 16:08 → ENRESERV 16:45
PROVIDERS: ADMIT Internal Medicine Sports Medicine; ATTEND Internal Medicine
DX: R41.0 Disorientation, unspecified (principal); G93.40 Encephalopathy, unspecified; G40.909 Epilepsy, unspecified, not intractable, without status epilepticus; I48.91 Unspecified atrial fibrillation; I12.9 Hypertensive chronic kidney disease with stage 1 through stage 4 chronic kidney disease, or unspecified chronic kidney disease; E78.5 Hyperlipidemia, unspecified; N18.3 Chronic kidney disease, stage 3 (moderate); E11.65 Type 2 diabetes mellitus with hyperglycemia; F32.9 Major depressive disorder, single episode, unspecified; F41.9 Anxiety disorder, unspecified; Z79.82 Long term (current) use of aspirin; Z79.01 Long term (current) use of anticoagulants; Z91.040 Latex allergy status; Z86.73 Personal history of transient ischemic attack (TIA), and cerebral infarction without residual deficits; Z95.810 Presence of automatic (implantable) cardiac defibrillator; Z95.2 Presence of prosthetic heart valve